=== PATIENT | female | born 1995 | race Caucasian/White ===

== ENCOUNTER 2016-09-21 18:02 | Emergency (ER) | payer OTHER ==
[~2016-09-21 18:02] MED LIST: ALBU17IN2 INH; FLAG500T PO; IBUP600T26 PO; No Home Medications; PRENTAB9 PO; TRAM50TA2 PO; TYLE325T5 PO
--- NOTE | 2016-09-21 20:08 | EDDOCDS ---
Nurse's Notes [facility] Name: Mayela Yoder Age: 21 yrs Sex: Female : 1995 Arrival Date: 09/21/2016 Time: 18:02 Bed D2 Private MD: No Pcp Diagnosis: Displaced fracture of medial phalanx of left ring finger-MILD DISPLACEMENT, AT THE PIP JOINT Presentation: 09/21 18:12 Presenting complaint: Patient states: Smashed left 4th finger under the couch 2 days pml ago. Having pain and swelling. Adult Sepsis Screening: The patient does not have new or worsening altered mentation. Patient's respiratory rate is less than 22. Systolic blood pressure is greater than 100. Patient has a qSOFA score of 0- Negative Sepsis Screen. Suicide/Homicide risk assessment- the patient denies having any suicidal and/or homicidal ideations and does not present with any other emotional, behavioral or mental health complaints. Status: Patient is not a business services intern or dependent. Transition of care: patient was not received from another setting of care. 18:12 Acuity: DANG Level 4 pml 18:12 Method Of Arrival: Walkin/Carried/Asstd pml Triage Assessment: 18:13 General: Appears in no apparent distress, Behavior is appropriate for age, cooperative. pml Pain: Pain currently is 8 out of 10 on a pain scale. HIV screening NA for this visit Offered previously. Neurological: Level of Consciousness is awake, alert. Respiratory: Airway is patent Respiratory effort is even, unlabored. Derm: Skin is pink, warm & dry. Musculoskeletal: swelling and bruising to left 4th finger. 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 none - PMHx: Ovarian cyst; Polycystic Ovary Disease; - PSHx: Cholecystectomy; eye surgery; - Social history: Smoking status: Patient uses tobacco products, heavy tobacco smoker. No barriers to communication noted, The patient speaks fluent Trinidadian, Speaks appropriately for age. - Family history: Not pertinent. - : The pt / caregiver states he / she is not on anticoagulants. Home medication list is obtained from the patient. - Exposure Risk Screening:: None identified. Screenin:05 Screening information is obtained from the patient. Fall risk: No risks identified. jf3 Assistance ADL's: requires no assistance with activities of daily living. Abuse/DV Screen: The patient / caregiver reports he/she is: not in a situation that causes fear, pain or injury. Nutritional screening: No deficits noted. Advance Directives: There is no active DNR order. home support is adequate. Assessment: 20:05 General: Appears in no apparent distress, comfortable, Behavior is cooperative. Pain: jf3 Location: dorsal aspect of middle phalanx of left ring finger and palmar aspect of middle phalanx of left ring finger Pain currently is 8 out of 10 on a pain scale. Neurological: Level of Consciousness is awake, alert, Oriented to person, place, time. Cardiovascular: Capillary refill < 3 seconds Chest pain is denied. Respiratory: Airway is patent Respiratory effort is even, unlabored, Respiratory pattern is regular, symmetrical, Denies shortness of breath. Derm: Bruising that is on dorsal aspect of middle phalanx of left ring finger. Vital Signs: 18:07 BP 151 / 62 LA Sitting (auto/reg); Pulse 113 LA; Resp 18 S; Temp 99.2(O); Pulse Ox 95% mt4 on R/A; Weight 58.97 kg (R); Height 5 ft. 4 in. (162.56 cm) (R); Pain 8/10; 20:07 BP 146 / 80; Pulse 115; Resp 16; Temp 99(O); Pulse Ox 96% on R/A; Pain 8/10; jf3 18:07 Body Mass Index 22.31 (58.97 kg, 162.56 cm) mt4 Vitals: 18:07 Log In Time: September 21, 2016 at 18:02. wv4 ED Course: 18:03 Patient visited by Leatha Sanz. mt4 18:03 Patient moved to Waiting mt4 18:06 No Pcp is Private Physician. mt4 18:08 Patient moved to Pre RCE mt4 18:13 Triage Initiated pml 18:16 Patient visited by Mara Camara RN. pml 18:55 Patient moved to D2 jo3 19:17 Rola Daugherty PA-C is PHCP. dt4 19:17 Ciro Encinas DO is Attending Physician. dt4 19:17 Patient visited by Rola Daugherty PA-C. dt4 19:29 [facility] Payment Agreement was scanned into [employer] and attached to record. gb 19:31 Patient name changed from Mayela\S\\S\North\S\ to Mayela\S\ \S\North. EDMS 19:49 [facility] is Referral Physician. dt4 19:52 [facility] is Referral Physician. dt4 20:05 The patient / caregiver is instructed regarding the plan of care and ED course. jf3 20:05 No IV's were initiated during this patient's visit. No procedures done that require jf3 assistance. Aluminum finger splint applied to Patient with positive distal sensation and brisk distal capillary refill after application. Order Results: There are currently no results for this order. Outcome: 19:50 Discharge ordered by Provider. dt4 20:07 Discharge Assessment: Patient awake, alert and oriented x 3. No cognitive and/or jf3 functional deficits noted. Patient verbalized understanding of disposition instructions. patient administered narcotics - no. The following High Risk Discharge criteria are identified: Discharged to home ambulatory. Condition: good. Discharge instructions given to patient, Instructed on discharge instructions, follow up and referral plans. Demonstrated understanding of instructions, Pt was receptive of discharge instructions/ teaching. No special radiology studies were completed. Property :Personal belongings accompany Pt. 20:08 Patient left the ED. jf3 Signatures: Dispatcher [employer] EDMS Roxanna Dubon, Soham Rousseau Faina Kathleen,RN Leatha Espitia mt4 Mara Camara RN RN pml Tschudi, Diane, PA-C PA-C dt4 Mendez Nicholas RN RN jf3 MTDD
--- NOTE | 2016-09-21 20:08 | EDDOCDS ---
Physician Documentation [facility] Name: Mayela Yoder Age: 21 yrs Sex: Female : 1995 Arrival Date: 09/21/2016 Time: 18:02 Bed D2 Private MD: No Pcp Disposition: 09/21/16 19:50 Discharged to Home/Self Care. Impression: Displaced fracture of medial phalanx of left ring finger - MILD DISPLACEMENT, AT THE PIP JOINT. - Condition is Stable. - Discharge Instructions: Finger Fracture. - Medication Reconciliation, Local Pharmacy Hours form. - Follow up: Emergency Department; When: As needed; Reason: Worsening of conditions. Follow up: [facility]; When: Call to arrange an appointment; Reason: Recheck today's complaints, Continuance of care, To establish care. Follow up: [facility]; When: Call to arrange an appointment; Reason: Recheck today's complaints, Continuance of care, To establish care. - Problem is new. - Symptoms are unchanged. Historical: - Allergies: Latex; Ibuprofen; - Home Meds: 1. none - PMHx: Ovarian cyst; Polycystic Ovary Disease; - PSHx: Cholecystectomy; eye surgery; - Social history: Smoking status: Patient uses tobacco products, heavy tobacco smoker. No barriers to communication noted, The patient speaks fluent Divehi, Speaks appropriately for age. - Family history: Not pertinent. - : The pt / caregiver states he / she is not on anticoagulants. Home medication list is obtained from the patient. - Exposure Risk Screening:: None identified. 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 4 in. (162.56 cm) (R); Pain 8/10; 20:07 BP 146 / 80; Pulse 115; Resp 16; Temp 99(O); Pulse Ox 96% on R/A; Pain 8/10; jf3 18:07 Body Mass Index 22.31 (58.97 kg, 162.56 cm) mt4 MDM: 18:15 Fingers Ordered. EDMS 19:28 Financial registration complete. gb 19:29 [facility] Payment Agreement was scanned into [employer] and attached to record. gb 19:52 Misc. Nursing Order ordered. dt4 19:52 Splint ordered. dt4 Signatures: Dispatcher [employer] EDMS Roxanna Dubon, Reg Reg gb Mara Camara RN RN pml Rola Daugherty PA-C PARu dt4 Mendez Nicholas RN RN jf3 The chart was reviewed and I authenticate all verbal orders and agree with the evaluation and treatment provided.Attachments: 19:29 [facility] Payment Agreement gb MTDD
--- NOTE | 2016-09-22 01:08 | REP ---
Clinical: Trauma. Injury. Technique: AP, lateral, bilateral oblique views of the left fourth digit. Findings: There is an intra-articular corner fracture at the base of the middle phalanx along the palmar/flexor compartment. Overlying soft tissue swelling. No further acute fracture or dislocation is appreciated. Impression: Corner fracture at the base of the middle phalanx fourth digit. Signed by Anton Santos MD 09/22/2016 01:00 A
--- NOTE | 2016-09-23 21:09 | EDDOCDS ---
Physician Documentation [facility] Name: Mayela Yoder Age: 21 yrs Sex: Female : 1995 Arrival Date: 09/21/2016 Time: 18:02 Bed D2 Private MD: No Pcp Disposition: 09/21/16 19:50 Discharged to Home/Self Care. Impression: Displaced fracture of medial phalanx of left ring finger - MILD DISPLACEMENT, AT THE PIP JOINT. - Condition is Stable. - Discharge Instructions: Finger Fracture. - Medication Reconciliation, Local Pharmacy Hours form. - Follow up: Emergency Department; When: As needed; Reason: Worsening of conditions. Follow up: [facility]; When: Call to arrange an appointment; Reason: Recheck today's complaints, Continuance of care, To establish care. Follow up: [facility]; When: Call to arrange an appointment; Reason: Recheck today's complaints, Continuance of care, To establish care. - Problem is new. - Symptoms are unchanged. Historical: - Allergies: Latex; Ibuprofen; - Home Meds: 1. none - PMHx: Ovarian cyst; Polycystic Ovary Disease; - PSHx: Cholecystectomy; eye surgery; - Social history: Smoking status: Patient uses tobacco products, heavy tobacco smoker. No barriers to communication noted, The patient speaks fluent Georgian, Speaks appropriately for age. - Family history: Not pertinent. - : The pt / caregiver states he / she is not on anticoagulants. Home medication list is obtained from the patient. - Exposure Risk Screening:: None identified. 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 4 in. (162.56 cm) (R); Pain 8/10; 20:07 BP 146 / 80; Pulse 115; Resp 16; Temp 99(O); Pulse Ox 96% on R/A; Pain 8/10; jf3 18:07 Body Mass Index 22.31 (58.97 kg, 162.56 cm) mt4 MDM: 18:15 Fingers Ordered. EDMS 19:28 Financial registration complete. gb 19:29 [facility] Payment Agreement was scanned into [employer] and attached to record. gb 19:52 Misc. Nursing Order ordered. dt4 19:52 Splint ordered. dt4 09/22 11:42 T-Sheet-- Draft Copy was scanned into [employer] and attached to record. gb Signatures: Dispatcher [employer] EDMS Roxanna Dubon, Reg Reg gb Mara Camara RN RN pml Rola Daugherty PA-C PA-C dt4 Mendez Nicholas RN RN jf3 The chart was reviewed and I authenticate all verbal orders and agree with the evaluation and treatment provided.Attachments: 09/21 19:29 [facility] Payment Agreement gb 09/22 11:42 T-Sheet-- Draft Copy gb Chart Complete MTDD
--- NOTE | 2016-09-23 21:09 | EDDOCDS ---
Nurse's Notes [facility] Name: Mayela Yoder Age: 21 yrs Sex: Female : 1995 Arrival Date: 09/21/2016 Time: 18:02 Bed D2 Private MD: No Pcp Diagnosis: Displaced fracture of medial phalanx of left ring finger-MILD DISPLACEMENT, AT THE PIP JOINT Presentation: 09/21 18:12 Presenting complaint: Patient states: Smashed left 4th finger under the couch 2 days pml ago. Having pain and swelling. Adult Sepsis Screening: The patient does not have new or worsening altered mentation. Patient's respiratory rate is less than 22. Systolic blood pressure is greater than 100. Patient has a qSOFA score of 0- Negative Sepsis Screen. Suicide/Homicide risk assessment- the patient denies having any suicidal and/or homicidal ideations and does not present with any other emotional, behavioral or mental health complaints. Status: Patient is not a library services dean or dependent. Transition of care: patient was not received from another setting of care. 18:12 Acuity: DANG Level 4 pml 18:12 Method Of Arrival: Walkin/Carried/Asstd pml Triage Assessment: 18:13 General: Appears in no apparent distress, Behavior is appropriate for age, cooperative. pml Pain: Pain currently is 8 out of 10 on a pain scale. HIV screening NA for this visit Offered previously. Neurological: Level of Consciousness is awake, alert. Respiratory: Airway is patent Respiratory effort is even, unlabored. Derm: Skin is pink, warm & dry. Musculoskeletal: swelling and bruising to left 4th finger. 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 none - PMHx: Ovarian cyst; Polycystic Ovary Disease; - PSHx: Cholecystectomy; eye surgery; - Social history: Smoking status: Patient uses tobacco products, heavy tobacco smoker. No barriers to communication noted, The patient speaks fluent Kuwaiti, Speaks appropriately for age. - Family history: Not pertinent. - : The pt / caregiver states he / she is not on anticoagulants. Home medication list is obtained from the patient. - Exposure Risk Screening:: None identified. Screenin:05 Screening information is obtained from the patient. Fall risk: No risks identified. jf3 Assistance ADL's: requires no assistance with activities of daily living. Abuse/DV Screen: The patient / caregiver reports he/she is: not in a situation that causes fear, pain or injury. Nutritional screening: No deficits noted. Advance Directives: There is no active DNR order. home support is adequate. Assessment: 20:05 General: Appears in no apparent distress, comfortable, Behavior is cooperative. Pain: jf3 Location: dorsal aspect of middle phalanx of left ring finger and palmar aspect of middle phalanx of left ring finger Pain currently is 8 out of 10 on a pain scale. Neurological: Level of Consciousness is awake, alert, Oriented to person, place, time. Cardiovascular: Capillary refill < 3 seconds Chest pain is denied. Respiratory: Airway is patent Respiratory effort is even, unlabored, Respiratory pattern is regular, symmetrical, Denies shortness of breath. Derm: Bruising that is on dorsal aspect of middle phalanx of left ring finger. Vital Signs: 18:07 BP 151 / 62 LA Sitting (auto/reg); Pulse 113 LA; Resp 18 S; Temp 99.2(O); Pulse Ox 95% mt4 on R/A; Weight 58.97 kg (R); Height 5 ft. 4 in. (162.56 cm) (R); Pain 8/10; 20:07 BP 146 / 80; Pulse 115; Resp 16; Temp 99(O); Pulse Ox 96% on R/A; Pain 8/10; jf3 18:07 Body Mass Index 22.31 (58.97 kg, 162.56 cm) mt4 Vitals: 18:07 Log In Time: September 21, 2016 at 18:02. pa4 ED Course: 18:03 Patient visited by Leatha Sanz. mt4 18:03 Patient moved to Waiting mt4 18:06 No Pcp is Private Physician. mt4 18:08 Patient moved to Pre RCE mt4 18:13 Triage Initiated pml 18:16 Patient visited by Mara Camara RN. pml 18:55 Patient moved to D2 jo3 19:17 Rola Daugherty PA-C is PHCP. dt4 19:17 Ciro Encinas DO is Attending Physician. dt4 19:17 Patient visited by Rola Daugherty PA-C. dt4 19:29 [facility] Payment Agreement was scanned into [employer] and attached to record. gb 19:31 Patient name changed from Mayela\S\\S\North\S\ to Mayela\S\ \S\North. EDMS 19:49 [facility] is Referral Physician. dt4 19:52 [facility] is Referral Physician. dt4 20:05 The patient / caregiver is instructed regarding the plan of care and ED course. jf3 20:05 No IV's were initiated during this patient's visit. No procedures done that require jf3 assistance. Aluminum finger splint applied to Patient with positive distal sensation and brisk distal capillary refill after application. 09/22 01:19 Fingers Returned. EDMS 11:42 T-Sheet-- Draft Copy was scanned into [employer] and attached to record. Order Results: Radiology Order: Fingers Test: Fingers REASON FOR EXAMINATION: LEFT 4TH FINGER INJURY; Clinical: Trauma. Injury.; ; Technique: AP, lateral, bilateral oblique views of the left fourth digit.; ; Findings:; There is an intra-articular corner fracture at the base of the middle phalanx; along the palmar/flexor compartment. Overlying soft tissue swelling. No further; acute fracture or dislocation is appreciated.; ; Impression:; Corner fracture at the base of the middle phalanx fourth digit.; ; ; Signed by; Anton Santos MD 09/22/2016 01:00 A; Outcome: 09/21 19:50 Discharge ordered by Provider. dt4 20:07 Discharge Assessment: Patient awake, alert and oriented x 3. No cognitive and/or jf3 functional deficits noted. Patient verbalized understanding of disposition instructions. patient administered narcotics - no. The following High Risk Discharge criteria are identified: Discharged to home ambulatory. Condition: good. Discharge instructions given to patient, Instructed on discharge instructions, follow up and referral plans. Demonstrated understanding of instructions, Pt was receptive of discharge instructions/ teaching. No special radiology studies were completed. Property :Personal belongings accompany Pt. 20:08 Patient left the ED. jf3 Signatures: Dispatcher [employer] EDSD Roxanna Dubon, Faina Garcia RN RN jo3 Thomas, Melissa mt4 Mara Camara RN RN pml Tschudi, Diane, PAMaliaC PA-C dt4 Farman,Mendez,RN RN jf3 Chart Complete MTDD
--- NOTE | 2016-09-23 21:09 | EDDOCDS ---
Physician Documentation [facility] Name: Mayela Yoder Age: 21 yrs Sex: Female : 1995 Arrival Date: 09/21/2016 Time: 18:02 Bed D2 Private MD: No Pcp Disposition: 09/21/16 19:50 Discharged to Home/Self Care. Impression: Displaced fracture of medial phalanx of left ring finger - MILD DISPLACEMENT, AT THE PIP JOINT. - Condition is Stable. - Discharge Instructions: Finger Fracture. - Medication Reconciliation, Local Pharmacy Hours form. - Follow up: Emergency Department; When: As needed; Reason: Worsening of conditions. Follow up: [facility]; When: Call to arrange an appointment; Reason: Recheck today's complaints, Continuance of care, To establish care. Follow up: [facility]; When: Call to arrange an appointment; Reason: Recheck today's complaints, Continuance of care, To establish care. - Problem is new. - Symptoms are unchanged. Historical: - Allergies: Latex; Ibuprofen; - Home Meds: 1. none - PMHx: Ovarian cyst; Polycystic Ovary Disease; - PSHx: Cholecystectomy; eye surgery; - Social history: Smoking status: Patient uses tobacco products, heavy tobacco smoker. No barriers to communication noted, The patient speaks fluent Urdu, Speaks appropriately for age. - Family history: Not pertinent. - : The pt / caregiver states he / she is not on anticoagulants. Home medication list is obtained from the patient. - Exposure Risk Screening:: None identified. 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 4 in. (162.56 cm) (R); Pain 8/10; 20:07 BP 146 / 80; Pulse 115; Resp 16; Temp 99(O); Pulse Ox 96% on R/A; Pain 8/10; jf3 18:07 Body Mass Index 22.31 (58.97 kg, 162.56 cm) mt4 MDM: 18:15 Fingers Ordered. EDMS 19:28 Financial registration complete. gb 19:29 [facility] [place] Agreement was scanned into [employer] and attached to record. gb 19:52 Misc. Nursing Order ordered. dt4 19:52 Splint ordered. dt4 09/22 11:42 T-Sheet-- Draft Copy was scanned into [employer] and attached to record. gb Signatures: Dispatcher [employer] EDMS Roxanna Dubon, Reg Reg gb Mara Camara RN RN pml Rola Daugherty PA-C PA-C dt4 Mendez Nicholas RN RN jf3 The chart was reviewed and I authenticate all verbal orders and agree with the evaluation and treatment provided.Attachments: 09/21 19:29 [facility] [place] Agreement gb 09/22 11:42 T-Sheet-- Draft Copy gb Chart Complete MTDD
== END 2016-09-21 20:08 | disposition home or self-care (01) ==
LOC: M ED 18:02
DX: S62.645A Nondisplaced fracture of proximal phalanx of left ring finger, initial encounter for closed fracture (principal); E28.2 Polycystic ovarian syndrome; F17.210 Nicotine dependence, cigarettes, uncomplicated; Z88.6 Allergy status to analgesic agent; Z91.040 Latex allergy status; W23.1XXA Caught, crushed, jammed, or pinched between stationary objects, initial encounter; Y92.019 Unspecified place in single-family (private) house as the place of occurrence of the external cause; Y93.89 Activity, other specified; Y99.9 Unspecified external cause status

== ENCOUNTER 2016-10-30 10:16 | Emergency (ER) | payer OTHER ==
[~2016-10-30] VITALS: Ht 165.1 cm; Wt 81.6 kg
[2016-10-30 10:17] VITALS: BP 143/66
[2016-10-30] MEDS ORDERED: ZOFR4TAB3 PO (12:36)
[2016-10-30] MEDS ORDERED: ONDANSETRON 4 MG ORAL DISINTEGRATING TAB (S0181) PO ONE (12:45)
--- NOTE | 2016-10-30 15:21 | ED PDOC ---
Provider Note chart reviewed Lyndsey White MD Oct 30, 2016 15:21
== END 2016-10-30 12:56 | disposition home or self-care (01) ==
LOC: M ED 12:30
DX: J06.9 Acute upper respiratory infection, unspecified (principal); R11.10 Vomiting, unspecified; J45.909 Unspecified asthma, uncomplicated; F41.9 Anxiety disorder, unspecified; Z87.440 Personal history of urinary (tract) infections; Z87.42 Personal history of other diseases of the female genital tract; F17.210 Nicotine dependence, cigarettes, uncomplicated; Z91.040 Latex allergy status; Z91.018 Allergy to other foods

== ENCOUNTER 2016-11-13 20:57 | Emergency (ER) | payer BC, MEDICAID, OTHER ==
[~2016-11-13] VITALS: Ht 160 cm; Wt 63.5 kg
[~2016-11-13 20:57] MED LIST changes: +ZOFR4TAB3 PO
[2016-11-14] MEDS ORDERED: traMADol 50 MG TAB PO ONE (02:15)
--- NOTE | 2016-11-14 03:40 | REPUSA ---
HISTORY: Trauma. COMPARISON: None provided. TECHNIQUE: Multiple thin section helically-acquired axially-displayed and helically acquired coronall y displayed computed tomographic images of the face are obtained from the mandible through the fronta l sinuses, with images obtained at soft tissue and bone window. 2D reformatted images were performed. FINDINGS: Chronic mucosal inflammatory changes of the right maxillary sinus. Normal bony mineralization. No fractures. Normal orbits. Normal, remaining clear paranasal sinuses. Normal oral and nasal cavities. Normal infratemporal fossa and deep parapharyngeal spaces with normal muscles of mastication. Normal parotid and submandibular glands. IMPRESSION: Chronic right maxillary sinusitis. No fracture. Thank you for your kind referral of this patient
[2016-11-14 04:05] VITALS: BP 122/71
== END 2016-11-14 04:06 | disposition home or self-care (01) ==
LOC: M ED 23:00
DX: S00.93XA Contusion of unspecified part of head, initial encounter (principal); W22.8XXA Striking against or struck by other objects, initial encounter; Y92.9 Unspecified place or not applicable; Y93.9 Activity, unspecified; Y99.9 Unspecified external cause status; J45.909 Unspecified asthma, uncomplicated; Z88.6 Allergy status to analgesic agent; Z91.040 Latex allergy status; Z79.899 Other long term (current) drug therapy

== ENCOUNTER 2016-11-19 15:53 | Emergency (ER) | payer OTHER ==
[~2016-11-19] VITALS: Ht 162.6 cm; Wt 63.5 kg
[2016-11-19] MEDS ORDERED: IBUPROFEN 600 MG TAB PO ONE (19:15)
[2016-11-19] MEDS ORDERED: ACETAMINOPHEN 325 MG TAB PO ONE (19:30)
[2016-11-19 19:53] LABS: BASO % 0.3 % (0.0-1.0); EOS # 0.2 K/mm3 (0.0-0.50); EOS % 1.1 % (0.0-3.0); LARGE UNSTAINED CELL # 0.2 K/mm3 (0.0-0.4); LARGE UNSTAINED CELL % 1.1 % (0.0-4.0); LYMPH # 2.5 K/mm3 (1.5-6.5); LYMPH % 14.8 % (24.0-44.0); MEAN CORPUSCULAR HEMOGLOBIN 27.6 pg (27.0-33.0); MEAN CORPUSCULAR HGB CONC 33.7 g/dl (32.0-36.5); MEAN CORPUSCULAR VOLUME 81.9 fl (80.0-96.0); MONO # 0.7 K/mm3 (0.0-0.8); MONO % 4.4 % (0.0-5.0); NEUTROPHILS # 12.5 K/mm3 (1.8-7.7); NEUTROPHILS % 78.2 % (36.0-66.0); PLATELET COUNT, AUTOMATED 274 k/mm3 (150-450); RED CELL DISTRIBUTION WIDTH 13.8 % (11.5-14.5); WHITE BLOOD COUNT 15.9 K/mm3 (4.0-10.0)
--- NOTE | 2016-11-19 20:13 | REP ---
Clinical: Fever . Comparison: 12/04/2014 . Technique: PA and lateral. Findings: The mediastinum and cardiac silhouette are normal. The lung petersen are clear and without acute consolidation, effusion, or pneumothorax. The skeletal structures are intact and normal. Impression: 1. No acute cardiopulmonary process. Signed by Anton Santos MD 11/19/2016 08:04 P
[2016-11-19 20:22] LABS: CONTROL LINE MONO INT CTR LINE PRESENT
[2016-11-19 20:26] LABS: ANION GAP 9 MEQ/L (8-16); BLOOD UREA NITROGEN 7 MG/DL (7-18); CARBON DIOXIDE LEVEL 26 MEQ/L (21-32); CHLORIDE LEVEL 102 MEQ/L (98-107); CREATININE FOR GFR 0.84 MG/DL (0.55-1.02); GLOMERULAR FILTRATION RATE > 60.0 (>60); GLUCOSE, FASTING 91 MG/DL (70-105); POTASSIUM SERUM 3.4 MEQ/L (3.5-5.1); SODIUM LEVEL 137 MEQ/L (136-145)
[2016-11-19] MEDS ORDERED: ISOVUE-370 76% 100ML VIAL (Q9967) As Ordered ONE (22:06)
--- NOTE | 2016-11-19 23:00 | REPUSA ---
HISTORY: Rule out tonsillar abscess COMPARISON: None TECHNIQUE: Multiple thin section helically-acquired axially-displayed computed tomographic images of the neck are obtained from the external auditory canals inferiorly through the sternoclavicular junct ion following the administration of {} ML of {} iodinated contrast material intravenously. Images wer e reviewed at soft tissue, bone and lung windows. FINDINGS: 4 x 6 mm low-density focus in the inferior aspect of the left palatine tonsil on axial series 20 on i mage 35. No enlarged lymphadenopathy. Normal tongue base, fossa of Rosenmuller, vallecula and piriform sinuses. Normal sublingual and submandibular spaces. Normal deep parapharyngeal spaces with normal infratemporal fossa and muscles of mastication. Bilater al symmetrical vascular enhancement. The parotid and submandibular glands are symmetrically normal. No ductal dilation or radiopaque calcu li. The visible spinal column is normal, without paraspinal mass or collection. The deep muscular and fas cial structures are symmetrically normal. Normal larynx and airway. The thyroid gland is normal with normal airway. Limited evaluation of the supraclavicular region/lung apices shows no abnormality. Limited evaluation of the posterior fossa structures shows no abnormality. IMPRESSION: 4 x 6 mm low-density focus in the inferior aspect of the left palatine tonsil noted suspicious for sm all abscess. Thank you for your kind referral of this patient
[2016-11-19] MEDS ORDERED: CLINDAMYCIN 900 MG in APPROPRIATE DILUENT 1 EA IV ONE (23:30)
[2016-11-19] MEDS ORDERED: dexameTHASONE 20 MG/5 ML VIAL (J1100) IV ONE (23:30)
[2016-11-20] MEDS ORDERED: CLIN1CAP5 PO (00:25)
[2016-11-20 00:39] VITALS: BP 135/76
== END 2016-11-20 00:41 | disposition home or self-care (01) ==
LOC: M ED 16:51
DX: J36 Peritonsillar abscess (principal); J45.990 Exercise induced bronchospasm; F17.210 Nicotine dependence, cigarettes, uncomplicated
CPT/HCPCS: 70491; 71020; 80048; 81001; 81025; 85025; 86308; 87040; 87804; 87880; 96365; 96375; 99283; J1100; Q9967

== ENCOUNTER 2016-11-25 02:22 | Emergency (ER) | payer OTHER ==
[~2016-11-25 02:22] MED LIST changes: +CLIN1CAP5 PO
[2016-11-25 02:45] VITALS: BP 138/79
[2016-11-25] MEDS ORDERED: ACETAMINOPHEN 325 MG TAB PO ONE (02:45)
[2016-11-25] MEDS ORDERED: AUGMENTIN 875 MG TAB PO ONE (02:45)
[2016-11-25] MEDS ORDERED: METOCLOPRAMIDE 10 MG TAB PO ONE (02:45)
[2016-11-25] MEDS ORDERED: AUGM875T27 PO (02:46)
[2016-11-25] MEDS ORDERED: CLAR1TAB2 PO (02:47)
[2016-11-25] MEDS ORDERED: REGL10TA6 PO (02:47)
[2016-11-25] MEDS ORDERED: MUCI600T34 PO (02:47)
== END 2016-11-25 03:05 | disposition home or self-care (01) ==
LOC: M ED 02:53
DX: R51 Headache (principal); J01.90 Acute sinusitis, unspecified; F17.210 Nicotine dependence, cigarettes, uncomplicated; N83.209 Unspecified ovarian cyst, unspecified side; Z87.440 Personal history of urinary (tract) infections; F41.9 Anxiety disorder, unspecified; F32.9 Major depressive disorder, single episode, unspecified

== ENCOUNTER 2016-11-25 22:26 | Emergency (ER) | payer OTHER ==
[~2016-11-25] VITALS: Ht 162.6 cm; Wt 68.0 kg
[~2016-11-25 22:26] MED LIST changes: +AUGM875T27 PO; +CLAR1TAB2 PO; +MUCI600T34 PO; +REGL10TA6 PO
[2016-11-25] MEDS ORDERED: diazePAM 5 MG TAB PO ONE (23:30)
[2016-11-26] LABS: BASO % 0.3 % (0.0-1.0); EOS # 0.2 K/mm3 (0.0-0.50); EOS % 3.3 % (0.0-3.0); LARGE UNSTAINED CELL # 0.1 K/mm3 (0.0-0.4); LARGE UNSTAINED CELL % 1.7 % (0.0-4.0); LYMPH # 2.7 K/mm3 (1.5-6.5); LYMPH % 36.7 % (24.0-44.0); MEAN CORPUSCULAR HEMOGLOBIN 27.3 pg (27.0-33.0); MEAN CORPUSCULAR HGB CONC 33.3 g/dl (32.0-36.5); MONO # 0.4 K/mm3 (0.0-0.8); MONO % 5.2 % (0.0-5.0); NEUTROPHILS # 3.8 K/mm3 (1.8-7.7); NEUTROPHILS % 52.8 % (36.0-66.0); PLATELET COUNT, AUTOMATED 355 k/mm3 (150-450); RED CELL DISTRIBUTION WIDTH 13.7 % (11.5-14.5); WHITE BLOOD COUNT 7.1 K/mm3 (4.0-10.0)
[2016-11-26] MEDS ORDERED: diphenhydrAMINE INJ 50MG/ML VIAL (J1200) IM STA (00:03)
[2016-11-26 00:15] LABS: CONTROL LINE HCG INT CTR LINE PRESENT
[2016-11-26 00:20] LABS: ANION GAP 8 MEQ/L (8-16); BLOOD UREA NITROGEN 12 MG/DL (7-18); CALCIUM LEVEL 9.2 MG/DL (8.5-10.1); CARBON DIOXIDE LEVEL 28 MEQ/L (21-32); CHLORIDE LEVEL 105 MEQ/L (98-107); CREATININE FOR GFR 0.72 MG/DL (0.55-1.02); GLOMERULAR FILTRATION RATE > 60.0 (>60); GLUCOSE, FASTING 82 MG/DL (70-105); POTASSIUM SERUM 4.3 MEQ/L (3.5-5.1); SODIUM LEVEL 141 MEQ/L (136-145)
[2016-11-26] MEDS ORDERED: ACETAMINOPHEN TAB 650MG DOSE (2X325MG) PO ONE (01:00)
[2016-11-26 01:14] VITALS: BP 133/63
== END 2016-11-26 01:44 | disposition left against medical advice (07) ==
LOC: M ED 23:33
DX: R51 Headache (principal); Z91.018 Allergy to other foods; Z88.6 Allergy status to analgesic agent; Z91.040 Latex allergy status; Z79.899 Other long term (current) drug therapy; J45.909 Unspecified asthma, uncomplicated; F17.210 Nicotine dependence, cigarettes, uncomplicated; N83.209 Unspecified ovarian cyst, unspecified side; F41.9 Anxiety disorder, unspecified; F32.9 Major depressive disorder, single episode, unspecified
CPT/HCPCS: 36415; 80048; 84703; 85025; 96372; 99282; J1200

== ENCOUNTER → 2016-11-27 | Outpatient (REF) | payer OTHER | LOC: M LAB REF 13:00 | PROVIDERS: ATTEND Nurse Practitioner Family | DX: N91.1 Secondary amenorrhea (principal) ==

== ENCOUNTER 2017-01-17 20:38 | Emergency (ER) | payer OTHER ==
[~2017-01-17] VITALS: Ht 162.6 cm; Wt 68.0 kg
[2017-01-17] MEDS ORDERED: GUAI100S7 PO (21:59)
[2017-01-17 22:18] VITALS: BP 135/69
--- NOTE | 2017-01-18 08:02 | REP ---
Clinical: Dyspnea . Comparison: 11/19/2016 . Technique: PA and lateral. Findings: The mediastinum and cardiac silhouette are normal. The lung petersen are clear and without acute consolidation, effusion, or pneumothorax. The skeletal structures are intact and normal. Impression: 1. No acute cardiopulmonary process. Signed by Anton Santos MD 01/18/2017 07:54 A
== END 2017-01-17 22:45 | disposition left against medical advice (07) ==
LOC: M ED 22:11
DX: J06.9 Acute upper respiratory infection, unspecified (principal); F17.200 Nicotine dependence, unspecified, uncomplicated; Z88.6 Allergy status to analgesic agent; Z91.040 Latex allergy status; Z91.018 Allergy to other foods

== ENCOUNTER 2017-03-11 21:42 | Emergency (ER) | payer OTHER ==
[~2017-03-11] VITALS: Ht 162.6 cm; Wt 92.8 kg
[~2017-03-11 21:42] MED LIST changes: -AUGM875T27 PO; +AUGM875T28 PO; +CLIN150C14 PO; -CLIN1CAP5 PO; +GUAI100S7 PO; +IBUP-1022 PO; -IBUP600T26 PO; -MUCI600T34 PO; +MUCI600T37 PO
[2017-03-11 21:43] VITALS: BP 127/74
== END 2017-03-11 23:42 | disposition left against medical advice (07) ==
LOC: M ED 21:42
DX: R21 Rash and other nonspecific skin eruption (principal); Z53.29 Procedure and treatment not carried out because of patient's decision for other reasons

== ENCOUNTER 2017-03-26 05:53 | Emergency (ER) | payer OTHER ==
[~2017-03-26] VITALS: Ht 162.6 cm; Wt 96.7 kg
[2017-03-26 06:02] VITALS: BP 144/74
== END 2017-03-26 06:50 | disposition left against medical advice (07) ==
LOC: M ED 05:53
DX: R10.9 Unspecified abdominal pain (principal); Z53.29 Procedure and treatment not carried out because of patient's decision for other reasons

== ENCOUNTER 2017-04-06 16:19 | Emergency (ER) | payer OTHER ==
[~2017-04-06] VITALS: Ht 162.6 cm; Wt 90.9 kg
[2017-04-06] MEDS ORDERED: ONDANSETRON 4MG/2ML VIAL (J2405) IV ONE (18:30)
[2017-04-06] MEDS ORDERED: KETOROLAC 30 MG/ML VIAL (J1885) IV ONE (18:30)
[2017-04-06] MEDS ORDERED: NS 1,000 ML IV ONE (18:30)
[2017-04-06 18:51] LABS: BASO % 0.3 % (0.0-1.0); EOS # 0.3 K/mm3 (0.0-0.50); EOS % 2.9 % (0.0-3.0); LARGE UNSTAINED CELL # 0.1 K/mm3 (0.0-0.4); LARGE UNSTAINED CELL % 1.3 % (0.0-4.0); LYMPH # 1.9 K/mm3 (1.5-6.5); LYMPH % 17.1 % (24.0-44.0); MEAN CORPUSCULAR HEMOGLOBIN 28.5 pg (27.0-33.0); MEAN CORPUSCULAR HGB CONC 34.6 g/dl (32.0-36.5); MEAN CORPUSCULAR VOLUME 82.4 fl (80.0-96.0); MONO # 0.4 K/mm3 (0.0-0.8); MONO % 3.5 % (0.0-5.0); NEUTROPHILS # 7.9 K/mm3 (1.8-7.7); NEUTROPHILS % 74.9 % (36.0-66.0); PLATELET COUNT, AUTOMATED 355 k/mm3 (150-450); RED CELL DISTRIBUTION WIDTH 12.7 % (11.5-14.5); WHITE BLOOD COUNT 10.5 K/mm3 (4.0-10.0)
[2017-04-06 19:09] LABS: CONTROL LINE HCG INT CTR LINE PRESENT
[2017-04-06 19:18] LABS: ALBUMIN 3.9 GM/DL (3.2-5.2); ALBUMIN/GLOBULIN RATIO 0.93 (1.00-1.93); ALKALINE PHOSPHATASE 67 U/L (45-117); ALT/SGPT 40 U/L (12-78); AMYLASE 27 U/L (25-115); ANION GAP 10 MEQ/L (8-16); AST/SGOT 24 U/L (15-37); BILIRUBIN,DIRECT 0.2 MG/DL (0.0-0.2); BILIRUBIN,TOTAL 0.8 MG/DL (0.2-1.0); BLOOD UREA NITROGEN 9 MG/DL (7-18); CALCIUM LEVEL 8.7 MG/DL (8.5-10.1); CARBON DIOXIDE LEVEL 25 MEQ/L (21-32); CHLORIDE LEVEL 104 MEQ/L (98-107); CREATININE FOR GFR 0.68 MG/DL (0.55-1.02); GLOMERULAR FILTRATION RATE > 60.0 (>60); GLUCOSE, FASTING 85 MG/DL (70-105); POTASSIUM SERUM 3.9 MEQ/L (3.5-5.1); SODIUM LEVEL 139 MEQ/L (136-145); TOTAL PROTEIN 8.1 GM/DL (6.4-8.2)
[2017-04-06 21:39] VITALS: BP 127/63
== END 2017-04-06 21:45 | disposition home or self-care (01) ==
LOC: M ED 16:19
DX: R10.9 Unspecified abdominal pain (principal); N93.9 Abnormal uterine and vaginal bleeding, unspecified; F99 Mental disorder, not otherwise specified; E66.9 Obesity, unspecified; F17.210 Nicotine dependence, cigarettes, uncomplicated; Z88.1 Allergy status to other antibiotic agents; Z88.6 Allergy status to analgesic agent; Z91.040 Latex allergy status; Z91.018 Allergy to other foods
CPT/HCPCS: 80048; 80076; 82150; 83690; 84703; 85025; 96361; 96374; 96375; 99283; J1885; J2405

== ENCOUNTER 2017-05-18 21:40 | Emergency (ER) | payer OTHER ==
[~2017-05-18] VITALS: Ht 162.6 cm; Wt 72.7 kg
[2017-05-19] MEDS ORDERED: ALBUTEROL 90 MCG/ACT 8GM HFA INHALER INH ONE (01:30)
[2017-05-19] MEDS ORDERED: BENZONATATE 100 MG CAP PO ONE (01:45)
[2017-05-19] MEDS ORDERED: TESS100C PO (01:54)
[2017-05-19] MEDS ORDERED: ALBU17IN INH (01:54)
[2017-05-19 02:01] VITALS: BP 150/72
== END 2017-05-19 02:06 | disposition home or self-care (01) ==
LOC: M ED 21:40
DX: J06.9 Acute upper respiratory infection, unspecified (principal); R05 Cough; Z72.0 Tobacco use

== ENCOUNTER 2017-07-21 14:32 | Emergency (ER) | payer OTHER ==
[~2017-07-21] VITALS: Ht 162.6 cm; Wt 86.4 kg
[2017-07-21 14:32] VITALS: BP 138/73
== END 2017-07-21 16:45 | disposition left against medical advice (07) ==
LOC: M ED 14:32
DX: Z53.21 Procedure and treatment not carried out due to patient leaving prior to being seen by health care provider (principal)

== ENCOUNTER → 2017-07-21 | Outpatient (CLI) | payer OTHER ==
[~2017-07-21] MED LIST changes: +ALBU17IN INH; +TESS100C PO
--- NOTE | 2017-07-21 15:37 | REP ---
Clinical: Cough and shortness of breath . Comparison: 01/17/2017 . Technique: PA and lateral. Findings: The mediastinum and cardiac silhouette are normal. The lung petersen are clear and without acute consolidation, effusion, or pneumothorax. The skeletal structures are intact and normal. Impression: 1. No acute cardiopulmonary process. Signed by Anton Santos MD 07/21/2017 03:28 P
== END ==
LOC: M RAD 15:04
PROVIDERS: ATTEND Physician Assistant Medical
DX: R05 Cough (principal); R06.02 Shortness of breath

== ENCOUNTER 2017-08-25 23:28 | Emergency (ER) | payer OTHER ==
[~2017-08-25] VITALS: Ht 162.6 cm; Wt 77.3 kg
[2017-08-25 23:28] VITALS: BP 129/58
== END 2017-08-26 00:45 | disposition left against medical advice (07) ==
LOC: M ED 23:28
DX: Z53.21 Procedure and treatment not carried out due to patient leaving prior to being seen by health care provider (principal)

== ENCOUNTER 2017-11-11 22:34 | Emergency (ER) | payer OTHER ==
[2017-11-12 02:16] LABS: KETONE, URINE AUTO RFX NEGATIVE (NEGATIVE); LEUKOCYTE ESTERASE UR AUTO RFX NEGATIVE (NEGATIVE); NITRITE, URINE AUTO RFX NEGATIVE (NEGATIVE); RBC, URINE AUTO RFX 3 /HPF (0-3); SPECIFIC GRAVITY UR AUTO RFX 1.026 (1.002-1.035); SQUAM EPITHELIAL CELL UR AURFX 2 /HPF (0-6); WBC, URINE AUTO RFX 1 /HPF (0-3)
[2017-11-12 03:03] LABS: BASO % 0.5 % (0.0-1.0); EOS # 0.3 10^3/uL (0.0-0.50); EOS % 3.9 % (0.0-3.0); HEMATOCRIT 29.8 % (36.0-47.0); HEMOGLOBIN 9.3 g/dl (12.0-16.0); IMMATURE GRANULOCYTE % 0.7 % (0-3.0); LYMPH # 2.8 10^3/uL (1.5-6.5); LYMPH % 38.1 % (24.0-44.0); MEAN CORPUSCULAR HEMOGLOBIN 25.4 pg (27.0-33.0); MEAN CORPUSCULAR HGB CONC 31.2 g/dl (32.0-36.5); MEAN CORPUSCULAR VOLUME 81.4 fl (80.0-96.0); MONO # 0.5 10^3/uL (0.0-0.8); MONO % 6.8 % (0.0-5.0); NEUTROPHILS # 3.7 10^3/uL (1.8-7.7); PLATELET COUNT, AUTOMATED 292 10^3/uL (150-450); RED BLOOD COUNT 3.66 10^6/uL (4.00-5.40); RED CELL DISTRIBUTION WIDTH 13.9 % (11.5-14.5); WHITE BLOOD COUNT 7.4 10^3/uL (4.0-10.0)
[2017-11-12 03:13] LABS: INR 0.96; PROTHROMBIN TIME 12.9 SECONDS (12.4-14.5)
[2017-11-12 03:14] LABS: PARTIAL THROMBOPLASTIN TIME 25.9 SECONDS (26.8-37.9)
[2017-11-12 03:24] LABS: INFLUENZA A AMPLIFICATION POSITIVE (NEGATIVE); INFLUENZA B AMPLIFICATION NEGATIVE (NEGATIVE)
[2017-11-12] MEDS: OSELTAMIVIR PHOSPHATE 75 MG CAP (TAMIFLU) PO (04:36)
== END 2017-11-12 04:44 | disposition home or self-care (01) ==
LOC: M ED 22:34
DX: N93.9 Abnormal uterine and vaginal bleeding, unspecified (principal); J09.X2 Influenza due to identified novel influenza A virus with other respiratory manifestations; N83.01 Follicular cyst of right ovary; N85.00 Endometrial hyperplasia, unspecified; Z88.0 Allergy status to penicillin; Z88.6 Allergy status to analgesic agent; Z91.040 Latex allergy status; Z91.018 Allergy to other foods
CPT/HCPCS: 76856

== ENCOUNTER 2018-02-11 01:51 | Emergency (ER) | payer OTHER ==
[2018-02-11] MEDS: ACETAMINOPHEN 325 MG TAB PO (05:20)
== END 2018-02-11 05:21 | disposition home or self-care (01) ==
LOC: M ED 01:51
DX: S39.002A Unspecified injury of muscle, fascia and tendon of lower back, initial encounter (principal); W01.0XXA Fall on same level from slipping, tripping and stumbling without subsequent striking against object, initial encounter; Y92.59 Other trade areas as the place of occurrence of the external cause; J45.909 Unspecified asthma, uncomplicated; Z88.0 Allergy status to penicillin; Z88.8 Allergy status to other drugs, medicaments and biological substances; Z91.018 Allergy to other foods; Z91.040 Latex allergy status
CPT/HCPCS: 72100

== ENCOUNTER 2018-02-16 04:18 | Emergency (ER) | payer OTHER ==
[2018-02-16] MEDS: IPRATROPIUM 0.5MG/ALBUTEROL 2.5MG INH SOL UD 3ML (DUONEB)(J7620) NEB (07:18)
== END 2018-02-16 08:21 | disposition home or self-care (01) ==
LOC: M ED 04:18
DX: J06.9 Acute upper respiratory infection, unspecified (principal); J45.909 Unspecified asthma, uncomplicated; Z72.0 Tobacco use; Z79.899 Other long term (current) drug therapy; Z88.0 Allergy status to penicillin; Z88.6 Allergy status to analgesic agent; Z88.8 Allergy status to other drugs, medicaments and biological substances; Z91.040 Latex allergy status; Z91.018 Allergy to other foods
CPT/HCPCS: 94640

== ENCOUNTER → 2018-07-24 | Outpatient (REF) | payer OTHER ==
[2018-07-24 21:27] LABS: CONTROL LINE UCG INT CTR LINE PRESENT; URINE PREG TEST NEGATIVE (NEGATIVE)
== END ==
LOC: M LAB REF 07-26 13:27
DX: Z32.00 Encounter for pregnancy test, result unknown (principal)
CPT/HCPCS: 84703

== ENCOUNTER 2018-10-10 13:48 | Emergency (ER) | payer OTHER ==
[~2018-10-10] VITALS: Ht 162.6 cm; Wt 75.0 kg
[~2018-10-10 13:48] MED LIST changes: +AFRI0.0511; +ALBU83IN INH; +BENZ200C70 PO; +GUAI100S27 PO; -GUAI100S7 PO; +OSEL75CA PO; +ZOFR4TAB14 PO; -ZOFR4TAB3 PO
[2018-10-10 16:57] LABS: BASO # 0.1 10^3/uL (0.0-0.2); BASO % 0.7 % (0.0-1.0); EOS # 0.4 10^3/uL (0.0-0.50); EOS % 5.2 % (0.0-3.0); HEMATOCRIT 44.3 % (36.0-47.0); LYMPH # 2.6 10^3/uL (1.5-6.5); LYMPH % 35.7 % (24.0-44.0); MEAN CORPUSCULAR HEMOGLOBIN 25.6 pg (27.0-33.0); MEAN CORPUSCULAR HGB CONC 31.6 g/dl (32.0-36.5); MONO # 0.5 10^3/uL (0.0-0.8); MONO % 7.2 % (0.0-5.0); NEUTROPHILS # 3.8 10^3/uL (1.8-7.7); NEUTROPHILS % 50.9 % (36.0-66.0); PLATELET COUNT, AUTOMATED 347 10^3/uL (150-450); RED BLOOD COUNT 5.47 10^6/uL (4.00-5.40); WHITE BLOOD COUNT 7.4 10^3/uL (4.0-10.0)
[2018-10-10 17:15] LABS: ALBUMIN 4.2 GM/DL (3.2-5.2); ALT/SGPT 48 U/L (12-78); AMYLASE 44 U/L (25-115); BILIRUBIN,DIRECT < 0.1 MG/DL (0.0-0.2); BILIRUBIN,TOTAL 0.3 MG/DL (0.2-1.0); BLOOD UREA NITROGEN 9 MG/DL (7-18); CALCIUM LEVEL 8.8 MG/DL (8.5-10.1); CARBON DIOXIDE LEVEL 28 MEQ/L (21-32); CHLORIDE LEVEL 105 MEQ/L (98-107); CREATININE FOR GFR 0.78 MG/DL (0.55-1.30); GLOMERULAR FILTRATION RATE > 60.0 (>60); GLUCOSE, FASTING 80 MG/DL (70-100); POTASSIUM SERUM 4.5 MEQ/L (3.5-5.1); SODIUM LEVEL 137 MEQ/L (136-145); TOTAL PROTEIN 7.9 GM/DL (6.4-8.2)
[2018-10-10 17:17] LABS: HCG, SERUM QUALITATIVE NEGATIVE (NEGATIVE)
[2018-10-10] MEDS ORDERED: OMEP40CA2 PO (18:46)
[2018-10-10] MEDS ORDERED: BACT800T5 PO (18:46)
[2018-10-10 19:27] VITALS: BP 123/80
--- NOTE | 2018-10-10 19:58 | ECGEPIP ---
Stationary ECG Study [facility] - ED Test Date: 2018-10-10 Pat Name: VINEET ALLEN Department: Room: - Gender: F [employer]: : 1995 Requested By: Katarzyna Leung PA-C Order Number: [id number] Reading MD: Lyndsey White Measurements Intervals [place] Rate: 66 P: 43 DC: 184 QRS: 8 QRSD: 77 T: 37 QT: 410 QTc: 431 Interpretive Statements SINUS RHYTHM WITH OCCASIONAL VENTRICULAR PREMATURE COMPLEXES DELAYED R WAVE PROGRESSION NONSPECIFIC ST T WAVE CHANGES 05/27/[address] T WAVE CHANGES Electronically Signed On 10-10-2018 19:58:05 EST by Lyndsey White
--- NOTE | 2018-10-11 10:38 | REP ---
CHEST: Two views. There is no evidence of acute infiltrate. No pleural effusion is seen. The heart is normal in size. The mediastinal silhouette is unremarkable. The visualized osseous structures are intact. IMPRESSION: No acute pulmonary disease. Electronically Signed by David Natarajan MD 10/11/2018 10:49 P
== END 2018-10-10 19:25 | disposition home or self-care (01) ==
LOC: M ED 13:48
DX: N39.0 Urinary tract infection, site not specified (principal); I49.3 Ventricular premature depolarization; J45.909 Unspecified asthma, uncomplicated; F33.9 Major depressive disorder, recurrent, unspecified; F41.9 Anxiety disorder, unspecified; Z87.891 Personal history of nicotine dependence; Z87.42 Personal history of other diseases of the female genital tract; Z91.018 Allergy to other foods; Z88.0 Allergy status to penicillin; Z91.048 Other nonmedicinal substance allergy status; Z91.040 Latex allergy status; Z88.8 Allergy status to other drugs, medicaments and biological substances

== ENCOUNTER 2018-11-26 06:35 | Emergency (ER) | payer OTHER ==
[~2018-11-26] VITALS: Ht 165.1 cm; Wt 68.2 kg
[~2018-11-26 06:35] MED LIST changes: +BACT800T5 PO; +GUAI100L6 PO; -GUAI100S27 PO; +OMEP40CA2 PO
[2018-11-26] MEDS ORDERED: FLON1SPR NARES (07:07)
[2018-11-26 08:03] LABS: HCG, SERUM QUALITATIVE NEGATIVE (NEGATIVE)
[2018-11-26] MEDS ORDERED: MACR100C43 PO (08:17)
[2018-11-26 09:15] VITALS: BP 129/71
[2018-11-26] MEDS ORDERED: ACETAMINOPHEN TAB 650MG DOSE (2X325MG) PO ONE (09:15)
== END 2018-11-26 09:22 | disposition home or self-care (01) ==
LOC: M ED 06:35
DX: N39.0 Urinary tract infection, site not specified (principal); H65.02 Acute serous otitis media, left ear; R51 Headache; J45.909 Unspecified asthma, uncomplicated; Z87.440 Personal history of urinary (tract) infections; F41.9 Anxiety disorder, unspecified; F32.9 Major depressive disorder, single episode, unspecified; Z91.018 Allergy to other foods; Z91.040 Latex allergy status; Z88.6 Allergy status to analgesic agent; Z88.8 Allergy status to other drugs, medicaments and biological substances; Z88.0 Allergy status to penicillin

== ENCOUNTER 2018-12-12 00:02 | Emergency (ER) | payer OTHER ==
[~2018-12-12] VITALS: Ht 167.6 cm; Wt 68.2 kg
[~2018-12-12 00:02] MED LIST changes: +FLON1SPR NARES; +MACR100C43 PO
[2018-12-12] MEDS ORDERED: BENZONATATE 100 MG CAP PO ONE (00:30)
[2018-12-12] MEDS ORDERED: ALBUTEROL SULFATE 2.5 MG/0.5 ML INH NEB SOLN NEB ONE (00:30)
[2018-12-12] MEDS ORDERED: dexameTHASONE 4 MG/ML 1ML VIAL (J1100) PO ONE ×2 (00:30→00:45)
[2018-12-12 01:30] VITALS: BP 129/80
[2018-12-12] MEDS ORDERED: AZIT-12 PO (01:42)
[2018-12-12] MEDS ORDERED: TESS100C PO (01:42)
[2018-12-12] MEDS ORDERED: AZITHROMYCIN 250 MG TAB PO ONE (01:45)
[2018-12-12] MEDS ORDERED: ALBU83IN NEB (01:50)
--- NOTE | 2018-12-13 09:26 | REP ---
Chest x-ray: Two views. History: Cough for 3 weeks. . Comparison study: October 10, 2018 . Findings: The lungs are well inflated and free of infiltrate. The pleural angles are sharp. The heart size is normal. Pulmonary vasculature is not increased. No significant bony abnormality is seen. Impression: Negative chest x-ray. Electronically Signed by Chao Estrada MD 12/12/2018 08:04 A
== END 2018-12-12 01:30 | disposition home or self-care (01) ==
LOC: M ED 00:02
DX: R05 Cough (principal); Z87.01 Personal history of pneumonia (recurrent); Z91.018 Allergy to other foods; Z88.0 Allergy status to penicillin; Z88.8 Allergy status to other drugs, medicaments and biological substances; Z91.040 Latex allergy status; Z86.59 Personal history of other mental and behavioral disorders
CPT/HCPCS: 71046; 94640; 99284; J1100

== ENCOUNTER 2019-08-22 14:56 | Emergency (ER) | payer OTHER ==
[~2019-08-22] VITALS: Ht 160 cm; Wt 63.6 kg
[~2019-08-22 14:56] MED LIST changes: +ALBU83IN NEB; +AZIT-12 PO; -OMEP40CA2 PO; +OMEP40CA97 PO
[2019-08-22] MEDS ORDERED: IBUP80TA (15:03)
[2019-08-22] MEDS ORDERED: AMOX875T (15:03)
[2019-08-22 17:03] LABS: INFLUENZA A AMPLIFICATION NEGATIVE (NEGATIVE); INFLUENZA B AMPLIFICATION NEGATIVE (NEGATIVE)
[2019-08-22] MEDS ORDERED: KETOROLAC 30 MG/ML VIAL (J1885) IV ONE (17:30)
[2019-08-22] MEDS ORDERED: LIDOCAINE VISCOUS 2% SOLN 15ML UDC SS ONE (17:30)
[2019-08-22 18:12] LABS: BASO # 0.1 10^3/uL (0.0-0.2); BASO % 0.5 % (0.0-1.0); EOS # 0.2 10^3/uL (0.0-0.5); EOS % 1.2 % (0.0-3.0); HEMATOCRIT 45.7 % (36.0-47.0); HEMOGLOBIN 14.6 g/dl (12.0-15.5); LYMPH # 1.8 10^3/uL (1.5-5.0); LYMPH % 13.8 % (24.0-44.0); MEAN CORPUSCULAR HEMOGLOBIN 27.7 pg (27.0-33.0); MEAN CORPUSCULAR HGB CONC 31.9 g/dl (32.0-36.5); MEAN CORPUSCULAR VOLUME 86.6 fl (80.0-96.0); MONO # 0.8 10^3/uL (0.0-0.8); MONO % 6.4 % (0.0-5.0); NEUTROPHILS # 10.1 10^3/uL (1.5-8.5); NEUTROPHILS % 77.5 % (36.0-66.0); PLATELET COUNT, AUTOMATED 348 10^3/uL (150-450); RED BLOOD COUNT 5.28 10^6/uL (4.00-5.40)
[2019-08-22 18:13] LABS: BLOOD UREA NITROGEN 7 MG/DL (7-18); CALCIUM LEVEL 9.3 MG/DL (8.5-10.1); CARBON DIOXIDE LEVEL 25 MEQ/L (21-32); CHLORIDE LEVEL 105 MEQ/L (98-107); CREATININE FOR GFR 0.82 MG/DL (0.55-1.30); GLOMERULAR FILTRATION RATE > 60.0 (>60); GLUCOSE, FASTING 85 MG/DL (70-100); POTASSIUM SERUM 4.2 MEQ/L (3.5-5.1); SODIUM LEVEL 140 MEQ/L (136-145)
[2019-08-22] MEDS ORDERED: ISOVUE-370 76% 100ML VIAL (Q9967) As Ordered ONE (18:25)
[2019-08-22 18:57] VITALS: BP 120/60
--- NOTE | 2019-08-22 19:41 | REPVR ---
PROCEDURE INFORMATION: Exam: CT Neck With Contrast Exam date and time: 08/22/2019 6:31 PM Age: 24 years old Clinical indication: Neck pain; Additional info: Right submandibular swelling; R/O abscess TECHNIQUE: Imaging protocol: Computed tomography images of the neck with intravenous contrast. Radiation optimization: All CT scans at this facility use at least one of these dose optimization techniques: automated exposure control; mA and/or kV adjustment per patient size (includes targeted exams where dose is matched to clinical indication); or iterative reconstruction. Contrast material: ISOVUE 370; Contrast volume: 75 ml; Contrast route: IV; COMPARISON: CT Neck with contrast 11/19/2016 10:10 PM FINDINGS: Nasopharynx: Unremarkable. Oropharynx: Unremarkable. No significant tonsillar enlargement. Hypopharynx: Unremarkable Larynx: Unremarkable. Normal epiglottis. Retropharyngeal space: Unremarkable. Submandibular/Parotid glands: Infiltrative changes at the right submandibular space without drainable fluid collection. Submandibular glands are symmetric and appear within normal limits. Associated thickening of the right platysma muscle. Thyroid: Normal. No enlarged or calcified nodules. Lymph nodes: Unremarkable. No lymphadenopathy. Trachea: Visualized trachea is unremarkable. Lungs: Unremarkable as visualized. Bones/joints: Unremarkable. No acute fracture. Soft tissues: See Submandibular/parotid Glands Finding. IMPRESSION: 1. Infiltrative changes of the right submandibular space, consider cellulitis. 2. No drainable fluid collection. Electronically signed by: Pravin Gonzalez On 08/22/2019 19:41:11 PM
[2019-08-22] MEDS ORDERED: LIDO1SOL8 PO (19:51)
[2019-08-22] MEDS ORDERED: KETO10TAB PO (19:51)
[2019-08-22] MEDS ORDERED: ONDA4TAB6 PO (19:51)
== END 2019-08-22 20:19 | disposition home or self-care (01) ==
LOC: M ED 14:56
DX: K04.7 Periapical abscess without sinus (principal); R51 Headache; Z91.018 Allergy to other foods; Z91.040 Latex allergy status; Z88.0 Allergy status to penicillin; Z88.8 Allergy status to other drugs, medicaments and biological substances
CPT/HCPCS: 36415; 70491; 80048; 83605; 85025; 87502; 96374; 99284; J1885; Q9967

== ENCOUNTER → 2019-11-15 | Outpatient (REF) | payer OTHER ==
[~2019-11-15] MED LIST changes: +AMOX875T; +IBUP80TA; +KETO10TAB PO; +LIDO2SOL17 PO; +ONDA4TAB6 PO
== END ==
LOC: M LAB REF 21:17
PROVIDERS: ATTEND Physician Assistant Medical
DX: R05 Cough (principal)

== ENCOUNTER → 2019-12-22 | Outpatient (CLI) | payer OTHER | LOC: M LABSMTC 11:55 | PROVIDERS: ATTEND Family Medicine | DX: Z11.59 Encounter for screening for other viral diseases (principal); Z20.828 Contact with and (suspected) exposure to other viral communicable diseases ==

== ENCOUNTER → 2020-02-17 | Outpatient (REF) | payer OTHER ==
[2020-02-17 16:53] LABS: HCG, SERUM QUALITATIVE NEGATIVE (NEGATIVE)
== END ==
LOC: M LAB REF 16:08
PROVIDERS: ATTEND Family Medicine Addiction Medicine
DX: N91.1 Secondary amenorrhea (principal)

== ENCOUNTER 2020-04-14 17:18 | Emergency (ER) | payer OTHER | END 2020-04-14 17:30 | disposition left against medical advice (07) | LOC: M ED 17:18 | DX: R10.13 Epigastric pain (principal); R63.4 Abnormal weight loss; R68.81 Early satiety; Z88.1 Allergy status to other antibiotic agents; Z88.6 Allergy status to analgesic agent; Z91.030 Bee allergy status; Z91.040 Latex allergy status; F17.200 Nicotine dependence, unspecified, uncomplicated ==

== ENCOUNTER → 2020-09-10 | Outpatient (CLI) | payer OTHER ==
--- NOTE | 2020-09-10 16:19 | REP ---
INDICATION: ABD PAIN AMENNORHEA COMPARISON: None. TECHNIQUE: Transabdominal pelvic ultrasound followed by transvaginal examination for better evaluation of the endometrium and adnexa with color Doppler evaluation of the ovaries. FINDINGS: Bladder is collapsed. Normal anteverted uterus measures 6.8 x 3.8 x 4.1. The endometrial complex measures 4.6 mm thickness. No discrete uterine or endometrial abnormalities are appreciated. Bilateral ovaries are normal in appearance and vascularity without evidence for torsion. Right ovary measures 3.8 x 2.2 x 3.4; R I = 0.49. Left ovary measures 4.1 x 2.0 x 4.0; R I = 0.69. No pelvic fluid or adnexal mass lesion IMPRESSION: Normal pelvic ultrasound. <Electronically signed by Anton Santos > 09/10/20 [id number]
== END ==
LOC: M RAD 15:26
PROVIDERS: ATTEND Physician Assistant Medical
DX: R10.9 Unspecified abdominal pain (principal); N91.2 Amenorrhea, unspecified

== ENCOUNTER → 2020-11-01 | Outpatient (REF) | payer OTHER ==
[~2020-11-01] MED LIST changes: -CLIN150C14 PO; +CLIN150C15 PO
[2020-11-01 23:17] LABS: AMORPHOUS SEDIMENT SMALL (NEGATIVE); APPEARANCE, URINE CLOUDY (CLEAR); BACTERIA, URINE AUTO NEGATIVE (NEGATIVE); BILIRUBIN, URINE AUTO NEGATIVE (NEGATIVE); BLOOD, URINE BLOOD NEGATIVE (NEGATIVE); COLOR, URINE YELLOW (YELLOW); GLUCOSE, URINE (UA) AUTO NEGATIVE (NEGATIVE); KETONE, URINE AUTO NEGATIVE (NEGATIVE); LEUKOCYTE ESTERASE, URINE AUTO NEGATIVE (NEGATIVE); MUCUS, URINE SMALL (NEGATIVE); NITRITE, URINE AUTO NEGATIVE (NEGATIVE); PROTEIN, URINE AUTO 1+ mg/dL (NEGATIVE); RBC, URINE AUTO 0 /HPF (0-3); SPECIFIC GRAVITY URINE AUTO 1.019 (1.002-1.035); SQUAMOUS EPITHELIAL CELL UR AU 12 /HPF (0-6); UROBILINOGEN, URINE AUTO 0.2 mg/dL (0.0-2.0); WBC, URINE AUTO 2 /HPF (0-3)
[2020-11-01 23:50] LABS: HCG, SERUM QUALITATIVE NEGATIVE (NEGATIVE)
[2020-11-01 23:58] LABS: HCG, SERUM QUANTITATIVE < 1.0 MIU/ML
== END ==
LOC: M LAB 23:01
PROVIDERS: ATTEND Physician Assistant
DX: N91.2 Amenorrhea, unspecified (principal)

== ENCOUNTER → 2020-11-26 | Outpatient (CLI) | payer OTHER ==
--- NOTE | 2020-11-27 04:23 | REP ---
INDICATION: UNSPECIFIED INJURY OF HEAD, INITIAL ENCOUNTER. COMPARISON: None. TECHNIQUE: AP, lateral, water's, bilateral oblique and zygomatic arch views. FINDINGS: Six total views of the facial bones demonstrates no obvious acute fracture or dislocation. Visualized sinuses appear well aerated and without fluid level to suggest occult injury. No obvious mucoperiosteal thickening to the sinuses noted. IMPRESSION: Normal facial radiograph series. <Electronically signed by Anton Santos > 11/27/20 [id number]
--- NOTE | 2020-11-27 04:24 | REP ---
INDICATION: UNSPECIFIED INJURY OF HEAD, INITIAL ENCOUNTER COMPARISON: None. TECHNIQUE: AP, lateral, Akbar's and Water's views FINDINGS: Skull appears intact and without evidence for injury. IMPRESSION: No obvious skull injury.. <Electronically signed by Anton Santos > 11/27/20 [id number]
== END ==
LOC: M RAD 15:09
PROVIDERS: ATTEND Pediatrics
DX: S09.90XA Unspecified injury of head, initial encounter (principal); X58.XXXA Exposure to other specified factors, initial encounter; Y92.9 Unspecified place or not applicable; Y99.9 Unspecified external cause status

== ENCOUNTER 2020-12-30 14:14 | Emergency (ER) | payer OTHER ==
[~2020-12-30] VITALS: Ht 160 cm; Wt 75.9 kg
[2020-12-30 14:15] VITALS: BP 119/72
[2020-12-30 17:21] LABS: BASO # 0.1 10^3/uL (0.0-0.2); BASO % 0.7 % (0.0-1.0); EOS # 0.5 10^3/uL (0.0-0.5); EOS % 5.6 % (0.0-3.0); HEMATOCRIT 42.7 % (36.0-47.0); HEMOGLOBIN 14.1 g/dl (12.0-15.5); LYMPH # 2.3 10^3/uL (1.5-5.0); LYMPH % 28.1 % (24.0-44.0); MEAN CORPUSCULAR HEMOGLOBIN 29.1 pg (27.0-33.0); MEAN CORPUSCULAR VOLUME 88.2 fl (80.0-96.0); MONO # 0.6 10^3/uL (0.0-0.8); MONO % 7.6 % (2.0-8.0); NEUTROPHILS # 4.8 10^3/uL (1.5-8.5); NEUTROPHILS % 57.8 % (36.0-66.0); PLATELET COUNT, AUTOMATED 284 10^3/uL (150-450); RED BLOOD COUNT 4.84 10^6/uL (4.00-5.40); WHITE BLOOD COUNT 8.3 10^3/uL (4.0-10.0)
[2020-12-30 17:30] VITALS: O2SAT 98
[2020-12-30 17:41] LABS: ALBUMIN 3.8 GM/DL (3.2-5.2); ALT/SGPT 22 U/L (12-78); BILIRUBIN,DIRECT 0.1 MG/DL (0.0-0.2); BILIRUBIN,TOTAL 0.3 MG/DL (0.2-1.0); BLOOD UREA NITROGEN 16 MG/DL (7-18); CALCIUM LEVEL 9.2 MG/DL (8.5-10.1); CARBON DIOXIDE LEVEL 28 MEQ/L (21-32); CHLORIDE LEVEL 110 MEQ/L (98-107); CK-MB VALUE MASS 1.2 NG/ML (<3.6); CPK CREATINE PHOSPHOKINASE 127 U/L (26-192); CREATININE FOR GFR 0.71 MG/DL (0.55-1.30); GLOMERULAR FILTRATION RATE > 60.0 (>60); GLUCOSE, FASTING 108 MG/DL (70-100); HCG, SERUM QUALITATIVE NEGATIVE (NEGATIVE); LIPASE 112 U/L (73-393); MB/CK RELATIVE INDEX 0.94 (< OR =4); POTASSIUM SERUM 3.8 MEQ/L (3.5-5.1); SODIUM LEVEL 143 MEQ/L (136-145); TOTAL PROTEIN 7.2 GM/DL (6.4-8.2); TROPONIN I < 0.02 NG/ML (< 0.10)
--- NOTE | 2020-12-30 18:03 | REP ---
INDICATION: shortness of breath, cough COMPARISON: 12/12/2018 TECHNIQUE: Portable AP view of the chest FINDINGS: The mediastinum and cardiac silhouette are stable and within normal limits for portable technique. The lung petersen are clear without acute consolidation, effusion, or pneumothorax. Skeletal structures are intact. IMPRESSION: No acute cardiopulmonary process appreciated. <Electronically signed by Anton Santos > 12/30/20 [id number]
== END 2020-12-30 18:16 | disposition left against medical advice (07) ==
LOC: M ED 14:14
DX: Z53.9 Procedure and treatment not carried out, unspecified reason (principal); R43.8 Other disturbances of smell and taste; R50.81 Fever presenting with conditions classified elsewhere; R06.02 Shortness of breath; R07.0 Pain in throat; R05 Cough; R11.2 Nausea with vomiting, unspecified; R19.7 Diarrhea, unspecified; J01.90 Acute sinusitis, unspecified; R09.82 Postnasal drip; I10 Essential (primary) hypertension; J45.909 Unspecified asthma, uncomplicated; Z87.01 Personal history of pneumonia (recurrent); E07.9 Disorder of thyroid, unspecified; F17.200 Nicotine dependence, unspecified, uncomplicated; Z91.018 Allergy to other foods; Z91.040 Latex allergy status; Z88.0 Allergy status to penicillin; Z88.8 Allergy status to other drugs, medicaments and biological substances

== ENCOUNTER → 2021-04-30 | Outpatient (REF) | payer OTHER ==
[~2021-04-30] MED LIST changes: -CLIN150C15 PO; +CLIN150C17 PO; +OMEP40CA4 PO; -OMEP40CA97 PO
== END ==
LOC: M LAB REF 22:25
PROVIDERS: ATTEND Physician Assistant
DX: N91.2 Amenorrhea, unspecified (principal)

== ENCOUNTER 2021-08-05 23:27 | Emergency (ER) | payer OTHER ==
[~2021-08-05] VITALS: Ht 165.1 cm; Wt 80.2 kg
[2021-08-05 23:28] VITALS: BP 115/56
--- OUTSIDE RECORDS SUMMARY | 2021-08-05 23:34 | CCD ---
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 ATHEN A ([facility]) Diastolic blood pressure 78 mm[Hg] 78 mm[Hg] [facility] ([facility]) Body height 62.9 [in_i] 62.9 [in_i] [facility] ([facility]) Body mass index (BMI) [Ratio] 31 kg/m2 31 kg/ m2 [facility] ([facility]) Systolic blood pressure 117 mm[Hg] 117 mm[Hg] A [facility] ([facility]) Body weight 2793.6 [oz_av] 2793.6 [oz_av] ATHEN A ([facility]) Diastolic blood pressure 78 mm[Hg] 78 mm[Hg] [facility] ([facility]) Body height 62.9 [in_i] 62.9 [in_i] [facility] ([facility]) Body mass index (BMI) [Ratio] 31 kg/m2 31 kg/ m2 [facility] ([facility]) Systolic blood pressure 117 mm[Hg] 117 mm[Hg] A [facility] ([facility]) Body weight 2793.6 [oz_av] 2793.6 [oz_av] ATHEN A ([facility]) Body weight 174.6 [lb_av] 174.6 [lb_av] [facility]CW[facility] ([facility] Body height 63 [in_i] 63 [in_i] eCW1 ([facility]) Body mass index (BMI) [Ratio] 30.93 kg/m2 30.93 kg/m2 [facility] Systolic blood pressure 126 mm[Hg] 126 mm[Hg] e CW1 ([facility]) Diastolic blood pressure 78 mm[Hg] 78 mm[Hg] eCW1 [facility]) Patient Treatment Plan of Care Planned Activity Planned Date Details Description Data Source (s) Clindamycin 300 MG Oral Capsule 11/14/2020 12:00:00 AM EDT [place] ([facility]) Clindamycin 300 MG Oral Capsule 11/14/2020 12:00:00 AM EDT [place] ([facility]) Clindamycin 300 MG Oral Capsule 11/14/2020 12:00:00 AM EDT [facility] ([facility]) Ondansetron 4 MG Disintegrating Oral Tablet [facility] ([facility]) Lidocaine Hydrochloride 20 MG/ML Mucous Membrane Topical Solution [facility] ([facility]) Ketorolac Tromethamine 10 MG Oral Tablet [facility] ([facility]) Ibuprofen 800 MG Oral Tablet [facility] ([facility]) chlorhexidine gluconate 1.2 MG/ML Mouthwash [place] ([facility]) Amoxicillin 875 MG Oral Tablet [facility] ([facility]) Acetaminophen 500 MG Oral Tablet [facility] ([facility]) Ondansetron 4 MG Disintegrating Oral Tablet [facility] ([facility]) Ketorolac Tromethamine 10 MG Oral Tablet [facility] ([facility]) Ibuprofen 800 MG Oral Tablet [facility] ([facility]) Amoxicillin 875 MG Oral Tablet [facility] ([facility]) Ondansetron 4 MG Disintegrating Oral Tablet [facility] ([facility]) Ketorolac Tromethamine 10 MG Oral Tablet [facility] ([facility]) Ibuprofen 800 MG Oral Tablet [facility] ([facility]) Amoxicillin 875 MG Oral Tablet [facility] ([facility])
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
== END 2021-08-06 02:24 | disposition left against medical advice (07) ==
LOC: M ED 23:27
DX: Z53.21 Procedure and treatment not carried out due to patient leaving prior to being seen by health care provider (principal)

== ENCOUNTER 2021-12-07 15:35 | Emergency (ER) | payer OTHER ==
[~2021-12-07] VITALS: Ht 162.6 cm; Wt 96.4 kg
[2021-12-07 17:28] LABS: BASO # 0.1 10^3/uL (0.0-0.2); BASO % 0.5 % (0.0-1.0); EOS # 0.2 10^3/uL (0.0-0.5); EOS % 2.1 % (0.0-3.0); HEMATOCRIT 44.6 % (36.0-47.0); HEMOGLOBIN 15.1 g/dl (12.0-15.5); LYMPH # 1.6 10^3/uL (1.5-5.0); LYMPH % 15.4 % (24.0-44.0); MEAN CORPUSCULAR HEMOGLOBIN 29.1 pg (27.0-33.0); MEAN CORPUSCULAR HGB CONC 33.9 g/dl (32.0-36.5); MEAN CORPUSCULAR VOLUME 85.9 fl (80.0-96.0); MONO # 0.8 10^3/uL (0.0-0.8); MONO % 7.7 % (2.0-8.0); NEUTROPHILS # 7.9 10^3/uL (1.5-8.5); NEUTROPHILS % 73.7 % (36.0-66.0); PLATELET COUNT, AUTOMATED 239 10^3/uL (150-450); RED BLOOD COUNT 5.19 10^6/uL (4.00-5.40); WHITE BLOOD COUNT 10.7 10^3/uL (4.0-10.0)
[2021-12-07] MEDS ORDERED: dexameTHASONE 20MG/5ML VIAL (J1100 PER 1MG) IV ONE (17:30)
[2021-12-07] MEDS ORDERED: NS 1,000 ML IV ONE (17:30)
[2021-12-07] MEDS ORDERED: KETOROLAC 30 MG/ML 1ML VIAL IV ONE (17:30)
[2021-12-07] MEDS ORDERED: ISOVUE-370 76% 100ML VIAL As Ordered ONE (17:39)
[2021-12-07 17:46] LABS: ERYTHROCYTE SEDIMENTATION RATE 4 mm/hr (0-20)
[2021-12-07] MEDS ORDERED: ONDANSETRON 4MG/2ML VIAL As Ordered ONE (17:51)
[2021-12-07] MEDS ORDERED: ONDANSETRON 4MG/2ML VIAL IV ONE (17:55)
[2021-12-07 19:31] VITALS: BP 114/56
[2021-12-07] MEDS ORDERED: MEDR4PAK PO (19:49)
[2021-12-07] MEDS ORDERED: CLEO150C PO (19:49)
[2021-12-07] MEDS ORDERED: CLEO300C2 PO (19:49)
[2021-12-07] MEDS ORDERED: LIDO2SOL9 PO (19:56)
[2021-12-07] MEDS ORDERED: CLINDAMYCIN 150MG CAPSULE PO ONE (20:00)
[2021-12-07] MEDS ORDERED: ONDANSETRON 4MG ORAL DISINTEGRATING TAB PO ONE (20:20)
[2021-12-07] MEDS ORDERED: ONDA8TAB8 PO (20:20)
[2021-12-07] MEDS ORDERED: LIDOCAINE VISCOUS 2% SOLN 15ML UDC PO ONE (20:35)
== END 2021-12-07 20:49 | disposition home or self-care (01) ==
LOC: M ED 15:35
DX: D17.0 Benign lipomatous neoplasm of skin and subcutaneous tissue of head, face and neck (principal); K04.7 Periapical abscess without sinus; R01.1 Cardiac murmur, unspecified; F17.200 Nicotine dependence, unspecified, uncomplicated; Z91.018 Allergy to other foods; Z91.040 Latex allergy status; Z88.5 Allergy status to narcotic agent; Z88.0 Allergy status to penicillin
CPT/HCPCS: 70487; 80047; 83605; 84702; 85025; 85652; 86140; 87040; 96361; 96374; 96375; 99284; J1100; J1885; J2405; Q9967

== ENCOUNTER → 2022-05-15 | Outpatient (REF) ==
[~2022-05-15] MED LIST changes: +ALBU2.5V10 INH; +ALBU2.5V10 NEB; -ALBU83IN INH; -ALBU83IN NEB; +CLEO150C PO; +CLEO300C2 PO; +LIDO2SOL9 PO; +MEDR4PAK PO; +ONDA8TAB8 PO
== END ==
LOC: M EMP 08:59
PROVIDERS: ATTEND Family Medicine
DX: Z20.822 Contact with and (suspected) exposure to COVID-19 (principal)

== ENCOUNTER → 2022-05-16 | Outpatient (REF) ==
[2022-05-16 14:26] LABS: RSV AMPLIFICATION NEGATIVE (NEGATIVE)
== END ==
LOC: M EMP 12:30
PROVIDERS: ATTEND Family Medicine
DX: Z20.822 Contact with and (suspected) exposure to COVID-19 (principal)

== ENCOUNTER 2022-05-19 07:40 | Emergency (ER) | payer OTHER ==
[~2022-05-19] VITALS: Ht 162.6 cm; Wt 81.8 kg
[2022-05-19] MEDS ORDERED: ONDA4TAB6 PO (09:16)
[2022-05-19 09:24] VITALS: BP 115/74
== END 2022-05-19 09:35 | disposition home or self-care (01) ==
LOC: M ED 07:40
DX: R05.9 Cough, unspecified (principal); B97.10 Unspecified enterovirus as the cause of diseases classified elsewhere; B34.8 Other viral infections of unspecified site; J45.909 Unspecified asthma, uncomplicated; F32.9 Major depressive disorder, single episode, unspecified; Z88.0 Allergy status to penicillin; Z88.8 Allergy status to other drugs, medicaments and biological substances; Z91.040 Latex allergy status; Z91.018 Allergy to other foods

== ENCOUNTER → 2022-05-27 | Outpatient (REF) | LOC: M EMP 09:45 | PROVIDERS: ATTEND Family Medicine | DX: Z20.822 Contact with and (suspected) exposure to COVID-19 (principal) ==

== ENCOUNTER → 2022-05-29 | Outpatient (REF) | payer OTHER ==
[2022-05-29 11:40] LABS: APPEARANCE, URINE MANUAL CLEAR (CLEAR); BILIRUBIN, URINE MANUAL NEGATIVE (NEGATIVE); BLOOD URINE MANUAL NEGATIVE (NEGATIVE); COLOR, URINE MANUAL YELLOW (YELLOW); GLUCOSE, URINE (UA) MANUAL NEGATIVE (NEGATIVE); KETONE, URINE MANUAL NEGATIVE (NEGATIVE); LEUKOCYTE ESTERASE, URINE MAN NEGATIVE (NEGATIVE); NITRITE, URINE MANUAL NEGATIVE (NEGATIVE); PROTEIN, URINE MANUAL NEGATIVE (NEGATIVE); UROBILINOGEN, URINE MANUAL NORMAL (NORMAL)
[2022-05-29 13:08] LABS: GC DNA AMPLIFICATION NEGATIVE (NEGATIVE)
== END ==
LOC: M LAB REF 11:13
PROVIDERS: ATTEND Physician Assistant
DX: N39.0 Urinary tract infection, site not specified (principal)

== ENCOUNTER 2022-05-31 11:13 | Emergency (ER) | payer OTHER ==
[2022-05-31] MEDS ORDERED: ACETAMINOPHEN 325 MG TAB PO ONE (13:05)
[2022-05-31 13:38] LABS: BASO % 0.6 % (0.0-1.0); EOS # 0.3 10^3/uL (0.0-0.5); EOS % 3.9 % (0.0-3.0); HEMATOCRIT 44.7 % (36.0-47.0); HEMOGLOBIN 14.5 g/dl (12.0-15.5); LYMPH # 2.3 10^3/uL (1.5-5.0); LYMPH % 34.4 % (24.0-44.0); MEAN CORPUSCULAR HEMOGLOBIN 27.8 pg (27.0-33.0); MEAN CORPUSCULAR HGB CONC 32.4 g/dl (32.0-36.5); MEAN CORPUSCULAR VOLUME 85.8 fl (80.0-96.0); MONO # 0.4 10^3/uL (0.0-0.8); MONO % 6.1 % (2.0-8.0); NEUTROPHILS # 3.7 10^3/uL (1.5-8.5); NEUTROPHILS % 54.9 % (36.0-66.0); PLATELET COUNT, AUTOMATED 262 10^3/uL (150-450); RED BLOOD COUNT 5.21 10^6/uL (4.00-5.40); WHITE BLOOD COUNT 6.7 10^3/uL (4.0-10.0)
[2022-05-31] MEDS ORDERED: ONDANSETRON 4MG ORAL DISINTEGRATING TAB PO ONE (14:40)
[2022-05-31 14:51] LABS: ALBUMIN 3.9 GM/DL (3.2-5.2); BILIRUBIN,DIRECT 0.1 MG/DL (0.0-0.2); BILIRUBIN,TOTAL 0.5 MG/DL (0.2-1.0); TOTAL PROTEIN 7.5 GM/DL (6.4-8.2)
[2022-05-31 15:16] VITALS: BP 123/58
[2022-05-31] MEDS ORDERED: OMEP40CA4 PO (15:22)
== END 2022-05-31 15:32 | disposition home or self-care (01) ==
LOC: M ED 11:13
DX: R10.10 Upper abdominal pain, unspecified (principal); M54.30 Sciatica, unspecified side; K76.0 Fatty (change of) liver, not elsewhere classified; K80.20 Calculus of gallbladder without cholecystitis without obstruction; J45.909 Unspecified asthma, uncomplicated; R51.9 Headache, unspecified; R01.1 Cardiac murmur, unspecified; F17.200 Nicotine dependence, unspecified, uncomplicated; Z79.899 Other long term (current) drug therapy; Z88.0 Allergy status to penicillin; Z88.8 Allergy status to other drugs, medicaments and biological substances; Z91.018 Allergy to other foods; Z91.040 Latex allergy status

== ENCOUNTER → 2022-06-04 | Outpatient (REF) | LOC: M EMP 09:05 | PROVIDERS: ATTEND Family Medicine | DX: Z20.822 Contact with and (suspected) exposure to COVID-19 (principal) ==

== ENCOUNTER → 2022-06-04 | Outpatient (CLI) | payer OTHER | LOC: M PLAIMG 09:53 | PROVIDERS: ATTEND Physician Assistant | DX: M54.41 Lumbago with sciatica, right side (principal); M54.42 Lumbago with sciatica, left side ==

== ENCOUNTER → 2022-06-22 | Outpatient (REF) | LOC: M LABSMTC 09:45 | PROVIDERS: ATTEND Pediatrics | DX: Z20.822 Contact with and (suspected) exposure to COVID-19 (principal) ==

== ENCOUNTER → 2022-06-26 | Outpatient (REF) | LOC: M EMP 08:14 | PROVIDERS: ATTEND Family Medicine | DX: Z20.822 Contact with and (suspected) exposure to COVID-19 (principal) ==

== ENCOUNTER 2022-09-27 16:13 | Emergency (ER) | payer OTHER ==
[~2022-09-27] VITALS: Ht 167.6 cm; Wt 88.0 kg
[2022-09-27] MEDS ORDERED: ONDA4TAB6 (16:43)
[2022-09-27] MEDS ORDERED: PANT40TA29 (16:43)
[2022-09-27] MEDS ORDERED: ALBU2.5V10 (16:43)
[2022-09-27] MEDS ORDERED: HYDR-3363 (16:43)
[2022-09-27 18:19] LABS: BASO % 0.6 % (0.0-1.0); EOS # 0.3 10^3/uL (0.0-0.5); EOS % 3.6 % (0.0-3.0); HEMATOCRIT 42.6 % (36.0-47.0); HEMOGLOBIN 14.2 g/dl (12.0-15.5); LYMPH # 2.4 10^3/uL (1.5-5.0); LYMPH % 33.8 % (24.0-44.0); MEAN CORPUSCULAR HEMOGLOBIN 28.6 pg (27.0-33.0); MEAN CORPUSCULAR HGB CONC 33.3 g/dl (32.0-36.5); MEAN CORPUSCULAR VOLUME 85.9 fl (80.0-96.0); MONO # 0.6 10^3/uL (0.0-0.8); MONO % 7.8 % (2.0-8.0); NEUTROPHILS # 3.8 10^3/uL (1.5-8.5); NEUTROPHILS % 53.9 % (36.0-66.0); PLATELET COUNT, AUTOMATED 285 10^3/uL (150-450); RED BLOOD COUNT 4.96 10^6/uL (4.00-5.40)
[2022-09-27 18:34] LABS: PARTIAL THROMBOPLASTIN TIME 28.1 SECONDS (24.8-34.2)
[2022-09-27 18:36] LABS: D-DIMER QUANT 303.71 ng/ml (<500)
[2022-09-27 18:40] LABS: CK-MB VALUE MASS < 1.0 NG/ML (<3.6)
[2022-09-27 18:42] LABS: ALKALINE PHOSPHATASE 54 U/L (46-116); ALT/SGPT 17 U/L (7.0-40); AST/SGOT 17 U/L (<34); BILIRUBIN,DIRECT 0.1 MG/DL (<0.4); BILIRUBIN,TOTAL 0.3 MG/DL (0.3-1.2); CPK CREATINE PHOSPHOKINASE 68 U/L (34-145); MAGNESIUM LEVEL 1.9 MG/DL (1.8-2.4); MB/CK RELATIVE INDEX 1.47 (< OR =4)
[2022-09-27 18:45] LABS: FREE T4 1.21 NG/DL (0.89-1.76); THYROID STIMULATING HORMONE 0.386 uIU/ML (0.55-4.78)
[2022-09-27 19:41] LABS: AMPHETAMINES LEVEL URINE NEGATIVE (NEGATIVE); BARBITURATES URINE NEGATIVE (NEGATIVE); BENZODIAZEPINES URINE NEGATIVE (NEGATIVE); COCAINE METABOLITE URINE NEGATIVE (NEGATIVE); METHADONE URINE NEGATIVE (NEGATIVE); OPIATES URINE NEGATIVE (NEGATIVE); PHENCYCLIDINE URINE NEGATIVE (NEGATIVE)
[2022-09-27 19:42] LABS: CANNABINOIDS URINE POSITIVE (NEGATIVE)
[2022-09-27] MEDS ORDERED: NYST-13 TOP (19:51)
[2022-09-27 20:07] VITALS: BP 131/66
== END 2022-09-27 20:08 | disposition home or self-care (01) ==
LOC: M ED 16:13
DX: R56.9 Unspecified convulsions (principal); F41.9 Anxiety disorder, unspecified; F32.A Depression, unspecified; J45.909 Unspecified asthma, uncomplicated; F12.10 Cannabis abuse, uncomplicated; F17.200 Nicotine dependence, unspecified, uncomplicated; Z87.42 Personal history of other diseases of the female genital tract; Z88.1 Allergy status to other antibiotic agents; Z91.040 Latex allergy status; Z91.018 Allergy to other foods; Z79.52 Long term (current) use of systemic steroids; Z79.83 Long term (current) use of bisphosphonates; Z79.899 Other long term (current) drug therapy

== ENCOUNTER 2022-10-31 18:52 | Emergency (ER) | payer OTHER ==
[~2022-10-31] VITALS: Ht 160 cm; Wt 88.0 kg
[~2022-10-31 18:52] MED LIST changes: +ALBU2.5V10; +HYDR-3363; +LIDO15SO4 PO; -LIDO2SOL17 PO; +NYST-13 TOP; +ONDA4TAB6; +PANT40TA29
[2022-10-31] MEDS ORDERED: GI COCKTAIL 50ML BTL(HYOSCYAMINE/MAALOX/LIDOCAINE VISCOUS)(1:3:1) PO ONE (20:00)
[2022-10-31] MEDS ORDERED: SUCRALFATE 1 GM TAB PO ONE (20:00)
[2022-10-31] MEDS ORDERED: ONDANSETRON 4MG ORAL DISINTEGRATING TAB PO ONE (20:00)
[2022-10-31] MEDS ORDERED: ISOVUE-370 76% 100ML VIAL As Ordered ONE (20:04)
[2022-10-31] MEDS ORDERED: NS 1,000 ML IV ONE (20:05)
[2022-10-31 20:30] LABS: BASO % 0.2 % (0.0-1.0); EOS # 0.1 10^3/uL (0.0-0.5); EOS % 0.7 % (0.0-3.0); HEMATOCRIT 44.3 % (36.0-47.0); HEMOGLOBIN 14.7 g/dl (12.0-15.5); LYMPH # 2.3 10^3/uL (1.5-5.0); LYMPH % 18.2 % (24.0-44.0); MEAN CORPUSCULAR HEMOGLOBIN 28.4 pg (27.0-33.0); MEAN CORPUSCULAR HGB CONC 33.2 g/dl (32.0-36.5); MEAN CORPUSCULAR VOLUME 85.5 fl (80.0-96.0); MONO # 0.9 10^3/uL (0.0-0.8); MONO % 7.5 % (2.0-8.0); NEUTROPHILS # 9.1 10^3/uL (1.5-8.5); PLATELET COUNT, AUTOMATED 290 10^3/uL (150-450); RED BLOOD COUNT 5.18 10^6/uL (4.00-5.40); WHITE BLOOD COUNT 12.5 10^3/uL (4.0-10.0)
[2022-10-31 20:57] LABS: LIPASE 30 U/L (12-53)
[2022-10-31 20:59] LABS: ALBUMIN 4.3 G/DL (3.2-5.2); ALKALINE PHOSPHATASE 62 U/L (46-116); ALT/SGPT 19 U/L (7.0-40); AST/SGOT 16 U/L (<34); BILIRUBIN,TOTAL 0.9 MG/DL (0.3-1.2); BLOOD UREA NITROGEN 10 MG/DL (9-23); CARBON DIOXIDE LEVEL 26 MMOL/L (20-31); CHLORIDE LEVEL 100 MMOL/L (98-107); CREATININE FOR GFR 0.69 MG/DL (0.55-1.30); GLOMERULAR FILTRATION RATE > 60.0 (>60); GLUCOSE, FASTING 83 MG/DL (60-100); POTASSIUM SERUM 3.8 MMOL/L (3.5-5.1); SODIUM LEVEL 136 MMOL/L (136-145); TOTAL PROTEIN 7.9 G/DL (5.7-8.2)
[2022-10-31 21:13] LABS: MONO REFLEX EBV COMP NEGATIVE (NEGATIVE)
[2022-10-31 22:36] VITALS: BP 116/58
[2022-10-31] MEDS ORDERED: PRED20TA PO (22:48)
[2022-11-01] MEDS ORDERED: ZITHTAB PO (16:17)
[2022-11-03 16:08] LABS: EBV AB TO NUCLEAR ANTIGEN <18.0 U/mL (0.0-17.9); EBV VIRAL CAPSID AG IgM <36.0 U/mL (0.0-35.9)
== END 2022-10-31 23:00 | disposition home or self-care (01) ==
LOC: M ED 18:52
DX: R10.9 Unspecified abdominal pain (principal); J02.9 Acute pharyngitis, unspecified; J45.909 Unspecified asthma, uncomplicated; G40.89 Other seizures; Z87.442 Personal history of urinary calculi; Z87.42 Personal history of other diseases of the female genital tract; Z88.1 Allergy status to other antibiotic agents; Z91.040 Latex allergy status; Z91.018 Allergy to other foods; Z79.52 Long term (current) use of systemic steroids; Z79.83 Long term (current) use of bisphosphonates; Z79.899 Other long term (current) drug therapy

== ENCOUNTER 2023-01-10 15:42 | Emergency (ER) | payer OTHER ==
[~2023-01-10 15:42] MED LIST changes: +LIDO15SO PO; -LIDO15SO4 PO; +LIDO2SOBTL PO; -LIDO2SOL9 PO; +PRED20TA PO; +ZITHTAB PO
[2023-01-10] MEDS ORDERED: IBUP200T46 PO (15:58)
[2023-01-10] MEDS ORDERED: IBUPROFEN 600MG TAB PO ONE (17:20)
[2023-01-10] MEDS ORDERED: ACETAMINOPHEN TAB 650MG DOSE (2X325MG) PO ONE (17:20)
[2023-01-10] MEDS ORDERED: IBUP-1022 PO (17:21)
[2023-01-10] MEDS ORDERED: BACI500O8 TOP (17:26)
[2023-01-10 17:45] VITALS: BP 123/66
== END 2023-01-10 17:46 | disposition home or self-care (01) ==
LOC: M ED 15:42 → EDBD 15:42 → M ED 17:46
DX: S92.352A Displaced fracture of fifth metatarsal bone, left foot, initial encounter for closed fracture (principal); S80.211A Abrasion, right knee, initial encounter; W19.XXXA Unspecified fall, initial encounter; Y92.481 Parking lot as the place of occurrence of the external cause; Y93.K1 Activity, walking an animal; F17.200 Nicotine dependence, unspecified, uncomplicated; Z79.899 Other long term (current) drug therapy; Z88.0 Allergy status to penicillin; Z88.8 Allergy status to other drugs, medicaments and biological substances; Z91.018 Allergy to other foods; Z91.040 Latex allergy status

== ENCOUNTER 2023-03-25 08:48 | Emergency (ER) | payer OTHER ==
[~2023-03-25] VITALS: Ht 160 cm; Wt 80.0 kg
[~2023-03-25 08:48] MED LIST changes: +BACI500O8 TOP; +IBUP200T46 PO
[2023-03-25 11:22] VITALS: BP 115/83; TEMP 97; O2SAT 100
[2023-03-25] MEDS ORDERED: PANTOPRAZOLE 40MG VIAL IV ONE (12:05)
[2023-03-25] MEDS ORDERED: SUCRALFATE 1 GM TAB PO ONE (12:05)
[2023-03-25] MEDS ORDERED: NS 1,000 ML IV ONE (12:05)
[2023-03-25 13:32] LABS: BASO % 0.6 % (0.0-1.0); EOS # 0.2 10^3/uL (0.0-0.5); EOS % 3.5 % (0.0-3.0); HEMATOCRIT 42.4 % (36.0-47.0); HEMOGLOBIN 14.1 g/dl (12.0-15.5); LYMPH # 2.5 10^3/uL (1.5-5.0); LYMPH % 37.7 % (24.0-44.0); MEAN CORPUSCULAR HEMOGLOBIN 28.9 pg (27.0-33.0); MEAN CORPUSCULAR HGB CONC 33.3 g/dl (32.0-36.5); MEAN CORPUSCULAR VOLUME 86.9 fl (80.0-96.0); MONO # 0.5 10^3/uL (0.0-0.8); MONO % 7.4 % (2.0-8.0); NEUTROPHILS # 3.3 10^3/uL (1.5-8.5); NEUTROPHILS % 50.6 % (36.0-66.0); PLATELET COUNT, AUTOMATED 233 10^3/uL (150-450); RED BLOOD COUNT 4.88 10^6/uL (4.00-5.40); WHITE BLOOD COUNT 6.6 10^3/uL (4.0-10.0)
[2023-03-25] MEDS ORDERED: ISOVUE-370 76% 100ML VIAL As Ordered ONE (13:44)
[2023-03-25 13:55] LABS: LIPASE 34 U/L (12-53)
[2023-03-25 13:57] LABS: ALBUMIN 3.9 G/DL (3.2-5.2); ALKALINE PHOSPHATASE 50 U/L (46-116); ALT/SGPT 17 U/L (7.0-40); AST/SGOT < 8 U/L (<34); BILIRUBIN,DIRECT 0.2 MG/DL (<0.4); BILIRUBIN,TOTAL 0.7 MG/DL (0.3-1.2); BLOOD UREA NITROGEN 13 MG/DL (9-23); CALCIUM LEVEL 9.3 MG/DL (8.5-10.1); CARBON DIOXIDE LEVEL 24 MMOL/L (20-31); CHLORIDE LEVEL 107 MMOL/L (98-107); CREATININE FOR GFR 0.61 MG/DL (0.55-1.30); GLOMERULAR FILTRATION RATE > 60.0 (>60); GLUCOSE, FASTING 77 MG/DL (60-100); SODIUM LEVEL 140 MMOL/L (136-145); TOTAL PROTEIN 6.9 G/DL (5.7-8.2)
[2023-03-25] MEDS ORDERED: CARA1TAB6 PO (15:18)
[2023-03-25] MEDS ORDERED: OMEP20TA2 PO (15:18)
== END 2023-03-25 15:30 | disposition home or self-care (01) ==
LOC: M ED 08:48
DX: R10.10 Upper abdominal pain, unspecified (principal); R10.2 Pelvic and perineal pain; F17.200 Nicotine dependence, unspecified, uncomplicated; Z79.899 Other long term (current) drug therapy; Z88.0 Allergy status to penicillin; Z88.1 Allergy status to other antibiotic agents; Z91.040 Latex allergy status; Z91.018 Allergy to other foods
CPT/HCPCS: 74177; 80047; 80053; 81001; 82248; 83690; 84702; 85025; 87086; 96361; 96374; 99284; C9113; Q9967

== ENCOUNTER → 2023-04-28 | Outpatient (CLI) | payer OTHER ==
[~2023-04-28] MED LIST changes: +CARA1TAB6 PO; +OMEP20TA2 PO
== END ==
LOC: M RAD 10:56
PROVIDERS: ATTEND Nurse Practitioner Family
DX: R10.2 Pelvic and perineal pain (principal)

== ENCOUNTER → 2023-05-11 | Outpatient (REF) | payer OTHER ==
[2023-05-11 22:41] LABS: URINE PREG TEST NEGATIVE (NEGATIVE)
[2023-05-11 22:45] LABS: APPEARANCE, URINE CLOUDY (CLEAR); BACTERIA, URINE AUTO 1+ (NEGATIVE); BILIRUBIN, URINE AUTO NEGATIVE (NEGATIVE); BLOOD, URINE BLOOD 1+ (NEGATIVE); COLOR, URINE YELLOW (YELLOW); GLUCOSE, URINE (UA) AUTO NEGATIVE (NEGATIVE); KETONE, URINE AUTO NEGATIVE (NEGATIVE); LEUKOCYTE ESTERASE, URINE AUTO 3+ (NEGATIVE); NITRITE, URINE AUTO NEGATIVE (NEGATIVE); PROTEIN, URINE AUTO NEGATIVE (NEGATIVE); RBC, URINE AUTO 7 /HPF (0-3); SPECIFIC GRAVITY URINE AUTO 1.006 (1.002-1.035); SQUAMOUS EPITHELIAL CELL UR AU 31 /HPF (0-6); UROBILINOGEN, URINE AUTO 0.2 mg/dL (0.0-2.0); WBC, URINE AUTO 21 /HPF (0-3)
== END ==
LOC: M LAB REF 21:21
PROVIDERS: ATTEND Physician Assistant Medical
DX: R52 Pain, unspecified (principal)

== ENCOUNTER 2023-06-02 12:18 | Emergency (ER) | payer OTHER ==
[~2023-06-02] VITALS: Ht 160 cm; Wt 87.2 kg
[2023-06-02 15:29] LABS: BASO # 0.1 10^3/uL (0.0-0.2); BASO % 0.9 % (0.0-1.0); EOS # 0.5 10^3/uL (0.0-0.5); EOS % 7.1 % (0.0-3.0); HEMATOCRIT 43.3 % (36.0-47.0); HEMOGLOBIN 14.7 g/dl (12.0-15.5); LYMPH # 2.9 10^3/uL (1.5-5.0); LYMPH % 41.9 % (24.0-44.0); MEAN CORPUSCULAR HEMOGLOBIN 29.4 pg (27.0-33.0); MEAN CORPUSCULAR HGB CONC 33.9 g/dl (32.0-36.5); MEAN CORPUSCULAR VOLUME 86.6 fl (80.0-96.0); MONO # 0.4 10^3/uL (0.0-0.8); MONO % 6.4 % (2.0-8.0); NEUTROPHILS % 43.6 % (36.0-66.0); PLATELET COUNT, AUTOMATED 259 10^3/uL (150-450); WHITE BLOOD COUNT 6.9 10^3/uL (4.0-10.0)
[2023-06-02 15:54] LABS: LIPASE 39 U/L (12-53)
[2023-06-02 15:57] LABS: ALBUMIN 4.1 G/DL (3.2-5.2); ALKALINE PHOSPHATASE 54 U/L (46-116); ALT/SGPT 28 U/L (7.0-40); AST/SGOT 20 U/L (<34); BILIRUBIN,DIRECT 0.1 MG/DL (<0.4); BILIRUBIN,TOTAL 0.4 MG/DL (0.3-1.2); BLOOD UREA NITROGEN 11 MG/DL (9-23); CALCIUM LEVEL 9.1 MG/DL (8.5-10.1); CARBON DIOXIDE LEVEL 26 MMOL/L (20-31); CHLORIDE LEVEL 108 MMOL/L (98-107); GLOMERULAR FILTRATION RATE > 60.0 (>60); GLUCOSE, FASTING 85 MG/DL (60-100); POTASSIUM SERUM 4.3 MMOL/L (3.5-5.1); SODIUM LEVEL 139 MMOL/L (136-145); TOTAL PROTEIN 7.3 G/DL (5.7-8.2)
[2023-06-02 15:59] LABS: HCG, SERUM QUALITATIVE NEGATIVE (NEGATIVE)
[2023-06-02 19:05] VITALS: TEMP 98; O2SAT 99
[2023-06-02 19:34] VITALS: BP 123/75
[2023-06-02] MEDS ORDERED: DICY-61 PO (20:38)
[2023-06-02] MEDS ORDERED: PROT1TAB2 PO (20:38)
[2023-06-02] MEDS ORDERED: ACETAMINOPHEN TAB 650MG DOSE (2X325MG) PO ONE (20:45)
== END 2023-06-02 20:48 | disposition home or self-care (01) ==
LOC: M ED 12:18
DX: R10.9 Unspecified abdominal pain (principal); R19.4 Change in bowel habit; Z88.1 Allergy status to other antibiotic agents; Z88.8 Allergy status to other drugs, medicaments and biological substances; Z91.040 Latex allergy status; Z79.899 Other long term (current) drug therapy; Z79.52 Long term (current) use of systemic steroids; Z79.1 Long term (current) use of non-steroidal anti-inflammatories (NSAID)

== ENCOUNTER → 2023-06-07 | Outpatient (REF) | payer OTHER ==
[~2023-06-07] MED LIST changes: +DICY-61 PO; +PROT1TAB2 PO
== END ==
LOC: M LAB REF 18:06
PROVIDERS: ATTEND Physician Assistant Medical
DX: R05.9 Cough, unspecified (principal)

== ENCOUNTER → 2023-07-02 | Outpatient (REF) | payer OTHER ==
[2023-07-02 17:36] LABS: URINE PREG TEST NEGATIVE (NEGATIVE)
== END ==
LOC: M LAB REF 16:45
PROVIDERS: ATTEND Physician Assistant Medical
DX: Z32.02 Encounter for pregnancy test, result negative (principal)

== ENCOUNTER 2023-11-11 11:31 | Emergency (ER) | payer OTHER ==
[~2023-11-11] VITALS: Ht 160 cm; Wt 95.0 kg
[~2023-11-11 11:31] MED LIST changes: +AZIT500T5 PO; +LEVO1TAB40 PO; +LIDO100S29 PO; -LIDO15SO PO; +LIDO15SO8 PO; -LIDO2SOBTL PO
[2023-11-11] MEDS ORDERED: AZIT500T5 PO (11:37)
[2023-11-11 14:29] LABS: BASO % 0.4 % (0.0-1.0); EOS # 0.1 10^3/uL (0.0-0.5); HEMATOCRIT 41.9 % (36.0-47.0); HEMOGLOBIN 13.9 g/dl (12.0-15.5); LYMPH # 1.6 10^3/uL (1.5-5.0); LYMPH % 23.2 % (24.0-44.0); MEAN CORPUSCULAR HEMOGLOBIN 29.1 pg (27.0-33.0); MEAN CORPUSCULAR HGB CONC 33.2 g/dl (32.0-36.5); MEAN CORPUSCULAR VOLUME 87.7 fl (80.0-96.0); MONO # 0.6 10^3/uL (0.0-0.8); MONO % 8.1 % (2.0-8.0); NEUTROPHILS # 4.6 10^3/uL (1.5-8.5); NEUTROPHILS % 65.9 % (36.0-66.0); PLATELET COUNT, AUTOMATED 307 10^3/uL (150-450); RED BLOOD COUNT 4.78 10^6/uL (4.00-5.40)
[2023-11-11 14:57] LABS: AMPHETAMINES LEVEL URINE NEGATIVE (NEGATIVE); BARBITURATES URINE NEGATIVE (NEGATIVE); BENZODIAZEPINES URINE NEGATIVE (NEGATIVE); COCAINE METABOLITE URINE NEGATIVE (NEGATIVE); METHADONE URINE NEGATIVE (NEGATIVE); OPIATES URINE NEGATIVE (NEGATIVE); PHENCYCLIDINE URINE NEGATIVE (NEGATIVE)
[2023-11-11 14:58] LABS: CANNABINOIDS URINE POSITIVE (NEGATIVE)
[2023-11-11 14:58] LABS: LIPASE 30 U/L (12-53)
[2023-11-11 15:01] LABS: ALBUMIN 3.8 G/DL (3.2-5.2); ALKALINE PHOSPHATASE 49 U/L (46-116); ALT/SGPT 28 U/L (7.0-40); AST/SGOT 15 U/L (<34); BILIRUBIN,DIRECT 0.2 MG/DL (<0.4); BILIRUBIN,TOTAL 0.4 MG/DL (0.3-1.2); BLOOD UREA NITROGEN 10 MG/DL (9-23); CALCIUM LEVEL 8.5 MG/DL (8.5-10.1); CARBON DIOXIDE LEVEL 26 MMOL/L (20-31); CHLORIDE LEVEL 107 MMOL/L (98-107); CREATININE FOR GFR 0.62 MG/DL (0.55-1.30); GLOMERULAR FILTRATION RATE > 60.0 (>60); GLUCOSE, FASTING 98 MG/DL (60-100); POTASSIUM SERUM 4.3 MMOL/L (3.5-5.1); SODIUM LEVEL 138 MMOL/L (136-145)
[2023-11-11] MEDS: KETOROLAC 30 MG/ML 1ML VIAL IV ONE (16:26)
[2023-11-11] MEDS: METOCLOPRAMIDE INJ 10MG/2ML VIAL IV ONE (16:26)
[2023-11-11] MEDS: NS 1,000 ML IV ONE (16:26)
[2023-11-11 17:00] VITALS: BP 117/55; TEMP 98.1; O2SAT 98
== END 2023-11-11 17:13 | disposition home or self-care (01) ==
LOC: M ED 11:31
DX: S09.90XA Unspecified injury of head, initial encounter (principal); X58.XXXA Exposure to other specified factors, initial encounter; Y92.9 Unspecified place or not applicable; Y93.9 Activity, unspecified; Y99.9 Unspecified external cause status; Z86.69 Personal history of other diseases of the nervous system and sense organs; F41.9 Anxiety disorder, unspecified; F17.200 Nicotine dependence, unspecified, uncomplicated; Z88.0 Allergy status to penicillin; Z88.1 Allergy status to other antibiotic agents; Z91.040 Latex allergy status; Z91.018 Allergy to other foods
CPT/HCPCS: 70450; 80048; 80076; 80307; 83605; 83690; 83735; 84702; 85025; 87040; 87486; 87581; 87633; 87798; 93005; 93041; 94760; 96374; 96375; 99284; J1885; J2765

== ENCOUNTER 2023-11-21 09:17 | Emergency (ER) | payer OTHER ==
[~2023-11-21] VITALS: Ht 160 cm; Wt 93.8 kg
[2023-11-21] MEDS ORDERED: HYDR-3363 PO (10:57)
[2023-11-21] MEDS ORDERED: NYST-38 PO (10:57)
[2023-11-21 11:19] VITALS: BP 147/99; TEMP 98.7; O2SAT 100
== END 2023-11-21 11:24 | disposition home or self-care (01) ==
LOC: M ED 09:17
DX: K05.00 Acute gingivitis, plaque induced (principal); K06.9 Disorder of gingiva and edentulous alveolar ridge, unspecified; K02.9 Dental caries, unspecified; R51.9 Headache, unspecified; J45.909 Unspecified asthma, uncomplicated; R56.9 Unspecified convulsions; F17.200 Nicotine dependence, unspecified, uncomplicated; Z88.0 Allergy status to penicillin; Z88.8 Allergy status to other drugs, medicaments and biological substances; Z91.040 Latex allergy status; Z91.018 Allergy to other foods

== ENCOUNTER 2023-12-03 23:03 | Emergency (ER) | payer OTHER ==
[~2023-12-03] VITALS: Ht 160 cm; Wt 91.2 kg
[~2023-12-03 23:03] MED LIST changes: +HYDR-3363 PO; +NYST-38 PO
[2023-12-03] MEDS ORDERED: CEFD1CAP9 PO (23:11)
[2023-12-04 01:56] VITALS: BP 117/59; TEMP 99.5; O2SAT 98
== END 2023-12-04 03:45 | disposition left against medical advice (07) ==
LOC: M ED 23:03
DX: Z53.21 Procedure and treatment not carried out due to patient leaving prior to being seen by health care provider (principal)

== ENCOUNTER 2024-02-09 21:01 | Emergency (ER) | payer OTHER ==
[~2024-02-09] VITALS: Ht 162.6 cm; Wt 87.4 kg
[~2024-02-09 21:01] MED LIST changes: +CEFD1CAP9 PO; +ONDA-282; +ONDA-282 PO; +ONDA-284 PO; -ONDA4TAB6; -ONDA4TAB6 PO; -ONDA8TAB8 PO
[2024-02-09] MEDS ORDERED: HYDR-3363 PO (21:15)
[2024-02-10] MEDS ORDERED: BACI28.417 TOP (01:29)
[2024-02-10] MEDS ORDERED: CEFD1CAP9 PO (01:39)
[2024-02-10 01:48] VITALS: BP 117/64; TEMP 97.6; O2SAT 100
[2024-02-10] MEDS ORDERED: ALBU2.5V10 NEB (01:50)
== END 2024-02-10 01:57 | disposition home or self-care (01) ==
LOC: M ED 21:01
DX: J06.9 Acute upper respiratory infection, unspecified (principal); B34.8 Other viral infections of unspecified site; R30.0 Dysuria; S00.412A Abrasion of left ear, initial encounter; S51.811A Laceration without foreign body of right forearm, initial encounter; X58.XXXA Exposure to other specified factors, initial encounter; Y92.9 Unspecified place or not applicable; Y93.9 Activity, unspecified; Y99.9 Unspecified external cause status; R56.9 Unspecified convulsions; R01.1 Cardiac murmur, unspecified; J45.990 Exercise induced bronchospasm; Z86.16 Personal history of COVID-19; Z87.01 Personal history of pneumonia (recurrent); F41.9 Anxiety disorder, unspecified; F32.A Depression, unspecified; F17.200 Nicotine dependence, unspecified, uncomplicated; Z88.0 Allergy status to penicillin; Z88.1 Allergy status to other antibiotic agents; Z88.8 Allergy status to other drugs, medicaments and biological substances; Z91.018 Allergy to other foods; Z91.040 Latex allergy status

== ENCOUNTER 2024-02-20 15:08 | Emergency (ER) | payer OTHER ==
[~2024-02-20] VITALS: Ht 160 cm; Wt 87.3 kg
[~2024-02-20 15:08] MED LIST changes: +BACI28.417 TOP
[2024-02-20 15:10] VITALS: BP 136/70; TEMP 98.9; O2SAT 100
[2024-02-20] MEDS ORDERED: ISOVUE-370 76% 100ML VIAL As Ordered ONE (18:11)
[2024-02-20 18:16] LABS: BASO % 0.4 % (0.0-1.0); EOS # 0.2 10^3/uL (0.0-0.5); EOS % 1.5 % (0.0-3.0); HEMATOCRIT 41.7 % (36.0-47.0); HEMOGLOBIN 14.5 g/dl (12.0-15.5); LYMPH # 3.3 10^3/uL (1.5-5.0); LYMPH % 29.1 % (24.0-44.0); MEAN CORPUSCULAR HEMOGLOBIN 29.3 pg (27.0-33.0); MEAN CORPUSCULAR HGB CONC 34.8 g/dl (32.0-36.5); MEAN CORPUSCULAR VOLUME 84.2 fl (80.0-96.0); MONO # 0.7 10^3/uL (0.0-0.8); NEUTROPHILS # 7.1 10^3/uL (1.5-8.5); NEUTROPHILS % 62.6 % (36.0-66.0); PLATELET COUNT, AUTOMATED 329 10^3/uL (150-450); RED BLOOD COUNT 4.95 10^6/uL (4.00-5.40); WHITE BLOOD COUNT 11.4 10^3/uL (4.0-10.0)
[2024-02-20 18:54] LABS: ALBUMIN 3.7 G/DL (3.2-5.2); BILIRUBIN,DIRECT 0.1 MG/DL (<0.4); BILIRUBIN,TOTAL 0.4 MG/DL (0.3-1.2); TOTAL PROTEIN 7.2 G/DL (5.7-8.2)
== END 2024-02-20 20:15 | disposition left against medical advice (07) ==
LOC: M ED 15:08
DX: R06.02 Shortness of breath (principal); R05.9 Cough, unspecified; Z53.9 Procedure and treatment not carried out, unspecified reason; J45.909 Unspecified asthma, uncomplicated; F17.200 Nicotine dependence, unspecified, uncomplicated; Z79.899 Other long term (current) drug therapy; Z88.0 Allergy status to penicillin; Z88.1 Allergy status to other antibiotic agents; Z91.040 Latex allergy status; Z91.018 Allergy to other foods
CPT/HCPCS: 70491; 71260; 80047; 80076; 83690; 84702; 85025; 87486; 87581; 87633; 87798; 99283; Q9967

== ENCOUNTER → 2024-04-19 | Outpatient (REF) | payer OTHER ==
[2024-04-19 23:33] LABS: Trichomonas vaginalis (AMP) NOT DETECTED (NEGATIVE)
[2024-04-19 23:56] LABS: GC DNA AMPLIFICATION NEGATIVE (NEGATIVE)
== END ==
LOC: M LAB REF 22:09
PROVIDERS: ATTEND Physician Assistant Medical
DX: Z20.2 Contact with and (suspected) exposure to infections with a predominantly sexual mode of transmission (principal)

== ENCOUNTER → 2024-04-20 | Outpatient (CLI) | payer OTHER ==
[2024-04-20 13:03] LABS: HCG, SERUM QUALITATIVE NEGATIVE (NEGATIVE)
[2024-04-20 13:41] LABS: HCG, SERUM QUANTITATIVE < 2.6 MIU/ML (<4.2)
== END ==
LOC: M RAD 11:15
PROVIDERS: ATTEND Physician Assistant
DX: R10.2 Pelvic and perineal pain (principal); N83.201 Unspecified ovarian cyst, right side

== ENCOUNTER 2024-05-16 21:42 | Emergency (ER) | payer OTHER ==
[~2024-05-16] VITALS: Ht 157.5 cm; Wt 89.7 kg
[2024-05-16 21:43] VITALS: BP 142/85; TEMP 97.8; O2SAT 98
== END 2024-05-17 01:33 | disposition left against medical advice (07) ==
LOC: M ED 21:42
DX: Z53.21 Procedure and treatment not carried out due to patient leaving prior to being seen by health care provider (principal)

== ENCOUNTER 2024-11-09 10:10 | Emergency (ER) | payer OTHER ==
[~2024-11-09] VITALS: Ht 160 cm; Wt 85.0 kg
[~2024-11-09 10:10] MED LIST changes: +OMEP-611 PO; -OMEP20TA2 PO
[2024-11-09] MEDS ORDERED: IBUP-1022 (10:19)
[2024-11-09] MEDS ORDERED: CLIN-250 (10:19)
[2024-11-09] MEDS ORDERED: NAPR-837 PO (12:06)
[2024-11-09] MEDS ORDERED: BACT800T5 PO (12:06)
[2024-11-09 12:22] VITALS: BP 108/72; TEMP 97.1; O2SAT 99
== END 2024-11-09 12:26 | disposition home or self-care (01) ==
LOC: M ED 12:16
DX: K04.7 Periapical abscess without sinus (principal); F17.200 Nicotine dependence, unspecified, uncomplicated; F44.5 Conversion disorder with seizures or convulsions; J45.990 Exercise induced bronchospasm; Z87.01 Personal history of pneumonia (recurrent); Z86.16 Personal history of COVID-19; Z87.440 Personal history of urinary (tract) infections; F41.9 Anxiety disorder, unspecified; F32.A Depression, unspecified; Z79.899 Other long term (current) drug therapy; Z88.0 Allergy status to penicillin; Z88.1 Allergy status to other antibiotic agents; Z88.8 Allergy status to other drugs, medicaments and biological substances; Z91.018 Allergy to other foods; Z91.040 Latex allergy status

== ENCOUNTER 2024-12-26 14:54 | Emergency (ER) | payer OTHER ==
[~2024-12-26] VITALS: Ht 160 cm; Wt 81.3 kg
[~2024-12-26 14:54] MED LIST changes: +CLIN-250; +IBUP-1022; +NAPR-837 PO; -NYST-13 TOP; +NYST0.1C TOP
[2024-12-26 14:57] VITALS: BP 143/76; TEMP 98; O2SAT 100
== END 2024-12-26 16:20 | disposition left against medical advice (07) ==
LOC: M ED 14:54
DX: Z53.21 Procedure and treatment not carried out due to patient leaving prior to being seen by health care provider (principal)

== ENCOUNTER 2025-01-08 03:47 | Emergency (ER) | payer OTHER ==
[~2025-01-08] VITALS: Ht 162.6 cm; Wt 86.6 kg
[2025-01-08 07:35] LABS: KETONE, URINE AUTO RFX NEGATIVE (NEGATIVE); LEUKOCYTE ESTERASE UR AUTO RFX NEGATIVE (NEGATIVE); MUCUS, URINE RFX SMALL (NEGATIVE); NITRITE, URINE AUTO RFX NEGATIVE (NEGATIVE); RBC, URINE AUTO RFX 144 /HPF (0-3); SQUAM EPITHELIAL CELL UR AURFX 1 /HPF (0-6); WBC, URINE AUTO RFX 4 /HPF (0-3)
[2025-01-08 07:37] LABS: BASO # 0.1 10^3/uL (0.0-0.2); BASO % 0.6 % (0.0-1.0); EOS # 0.4 10^3/uL (0.0-0.5); HEMATOCRIT 39.8 % (36.0-47.0); HEMOGLOBIN 13.1 g/dl (12.0-15.5); LYMPH % 34.2 % (24.0-44.0); MEAN CORPUSCULAR HEMOGLOBIN 29.1 pg (27.0-33.0); MEAN CORPUSCULAR HGB CONC 32.9 g/dl (32.0-36.5); MEAN CORPUSCULAR VOLUME 88.4 fl (80.0-96.0); MONO # 0.5 10^3/uL (0.0-0.8); MONO % 5.8 % (2.0-8.0); NEUTROPHILS # 4.9 10^3/uL (1.5-8.5); NEUTROPHILS % 55.1 % (36.0-66.0); PLATELET COUNT, AUTOMATED 275 10^3/uL (150-450); WHITE BLOOD COUNT 8.9 10^3/uL (4.0-10.0)
[2025-01-08 08:08] LABS: ALBUMIN 3.9 G/DL (3.2-5.2); ALKALINE PHOSPHATASE 49 U/L (35-104); ALT/SGPT 27 U/L (7.0-40); AST/SGOT 18 U/L (<34); BILIRUBIN,TOTAL 0.2 MG/DL (0.3-1.2); BLOOD UREA NITROGEN 16 MG/DL (9-23); CALCIUM LEVEL 9.3 MG/DL (8.5-10.1); CARBON DIOXIDE LEVEL 29 MMOL/L (20-31); CHLORIDE LEVEL 108 MMOL/L (98-107); CREATININE FOR GFR 0.74 MG/DL (0.55-1.30); GLOMERULAR FILTRATION RATE > 90.0 (>60); GLUCOSE, FASTING 90 MG/DL (60-100); POTASSIUM SERUM 4.2 MMOL/L (3.5-5.1); SODIUM LEVEL 142 MMOL/L (136-145)
[2025-01-08] MEDS ORDERED: PRED10TA2 PO (09:01)
[2025-01-08] MEDS ORDERED: FLUC150T9 PO (09:01)
[2025-01-08] MEDS: predniSONE 20 MG TAB PO ONE (09:09)
[2025-01-08 09:11] VITALS: BP 134/85; TEMP 97.4; O2SAT 96
== END 2025-01-08 09:50 | disposition home or self-care (01) ==
LOC: M ED 03:47
DX: G50.1 Atypical facial pain (principal); Z79.899 Other long term (current) drug therapy; Z88.0 Allergy status to penicillin; Z88.1 Allergy status to other antibiotic agents; Z88.8 Allergy status to other drugs, medicaments and biological substances; Z91.040 Latex allergy status; Z91.018 Allergy to other foods
CPT/HCPCS: 80053; 81001; 84702; 85025; 87486; 87581; 87633; 87798; 99284; J7512

== ENCOUNTER 2025-05-07 15:56 | Emergency (ER) | payer OTHER ==
[~2025-05-07] VITALS: Ht 160 cm; Wt 81.4 kg
[~2025-05-07 15:56] MED LIST changes: +FLUC150T9 PO; -IBUP-1022; -IBUP-1022 PO; +IBUP600T42; +IBUP600T42 PO; +PRED10TA2 PO
[2025-05-07] MEDS ORDERED: MELO7.5T35 (16:18)
[2025-05-07 16:53] LABS: BASO # 0.0 10^3/uL (0.0-0.2); BASO % 0.5 % (0.0-1.0); EOS # 0.4 10^3/uL (0.0-0.5); EOS % 5.1 % (0.0-3.0); LYMPH # 2.6 10^3/uL (1.5-5.0); LYMPH % 30.6 % (24.0-44.0); MONO # 0.6 10^3/uL (0.0-0.8); MONO % 7.2 % (2.0-8.0); NEUTROPHILS # 4.8 10^3/uL (1.5-8.5); NEUTROPHILS % 56.5 % (36.0-66.0); PLATELET COUNT, AUTOMATED 255 10^3/uL (150-450)
[2025-05-07 16:56] LABS: KETONE, URINE AUTO RFX NEGATIVE (NEGATIVE); MUCUS, URINE RFX SMALL (NEGATIVE); NITRITE, URINE AUTO RFX NEGATIVE (NEGATIVE); RBC, URINE AUTO RFX 1 /HPF (0-3); SQUAM EPITHELIAL CELL UR AURFX 4 /HPF (0-6); WBC, URINE AUTO RFX 3 /HPF (0-3)
[2025-05-07 16:57] LABS: LEUKOCYTE ESTERASE UR AUTO RFX TRACE (NEGATIVE)
[2025-05-07 17:23] LABS: ALT/SGPT 20 U/L (7.0-40); AST/SGOT 20 U/L (<34); CALCIUM LEVEL 9.2 MG/DL (8.5-10.1); CARBON DIOXIDE LEVEL 24 MMOL/L (20-31); CHLORIDE LEVEL 108 MMOL/L (98-107); CREATININE FOR GFR 0.69 MG/DL (0.55-1.30); GLOMERULAR FILTRATION RATE > 90.0 (>60); POTASSIUM SERUM 4.3 MMOL/L (3.5-5.1); SODIUM LEVEL 141 MMOL/L (136-145)
[2025-05-07 17:33] LABS: HCG, SERUM QUALITATIVE NEGATIVE (NEGATIVE)
[2025-05-07] MEDS ORDERED: SUCR1SS PO (18:51)
[2025-05-07] MEDS ORDERED: PANT40TA29 PO (18:51)
[2025-05-07] MEDS ORDERED: CYCL-707 PO (18:53)
[2025-05-07 19:01] VITALS: BP 121/56; TEMP 98.5; O2SAT 99
== END 2025-05-07 19:07 | disposition home or self-care (01) ==
LOC: M ED 15:56
DX: K21.9 Gastro-esophageal reflux disease without esophagitis (principal); J45.909 Unspecified asthma, uncomplicated; K80.20 Calculus of gallbladder without cholecystitis without obstruction; F17.200 Nicotine dependence, unspecified, uncomplicated; Z79.899 Other long term (current) drug therapy; Z88.0 Allergy status to penicillin; Z88.1 Allergy status to other antibiotic agents; Z88.8 Allergy status to other drugs, medicaments and biological substances; Z91.018 Allergy to other foods; Z91.040 Latex allergy status

== ENCOUNTER → 2025-06-19 | Outpatient (CLI) | payer OTHER ==
[~2025-06-19] MED LIST changes: +CYCL-707 PO; +MELO7.5T35; +PANT40TA29 PO; +SUCR1SS PO
== END ==
LOC: M WHC 10:04
PROVIDERS: ATTEND Internal Medicine
DX: R22.1 Localized swelling, mass and lump, neck (principal)

== ENCOUNTER → 2025-07-11 | Outpatient (REF) | payer OTHER ==
[2025-07-11 09:53] LABS: BASO # 0.1 10^3/uL (0.0-0.2); BASO % 0.7 % (0.0-1.0); EOS # 0.3 10^3/uL (0.0-0.5); EOS % 4.1 % (0.0-3.0); LYMPH # 2.4 10^3/uL (1.5-5.0); LYMPH % 31.6 % (24.0-44.0); MONO # 0.5 10^3/uL (0.0-0.8); MONO % 6.4 % (2.0-8.0); NEUTROPHILS # 4.3 10^3/uL (1.5-8.5); NEUTROPHILS % 56.8 % (36.0-66.0); PLATELET COUNT, AUTOMATED 286 10^3/uL (150-450)
[2025-07-11 10:12] LABS: URINE PREG TEST NEGATIVE (NEGATIVE)
[2025-07-11 10:20] LABS: LDH LACTATE DEHYDROGENASE 153 U/L (120-246)
[2025-07-11 10:21] LABS: ALT/SGPT 21 U/L (7.0-40); AST/SGOT 19 U/L (<34); CALCIUM LEVEL 9.0 MG/DL (8.5-10.1); CARBON DIOXIDE LEVEL 23 MMOL/L (20-31); CHLORIDE LEVEL 106 MMOL/L (98-107); CREATININE FOR GFR 0.68 MG/DL (0.55-1.30); GLOMERULAR FILTRATION RATE > 90.0 (>60); POTASSIUM SERUM 4.2 MMOL/L (3.5-5.1); SODIUM LEVEL 139 MMOL/L (136-145)
[2025-07-11 10:48] LABS: HIV 1&2 SCREEN NEGATIVE (NEGATIVE)
[2025-07-11 10:56] LABS: HEPATITIS C VIRUS ABY INDEX < 0.02 INDEX (<0.8)
== END ==
LOC: M LAB REF 09:38
PROVIDERS: ATTEND Internal Medicine
DX: R22.1 Localized swelling, mass and lump, neck (principal); Z71.89 Other specified counseling